=== PATIENT | female | born 1940 | race Caucasian/White ===

== ENCOUNTER 2021-04-17 14:24 | Inpatient (IN) | payer MEDICARE, OTHER ==
[2021-04-17] MEDS ORDERED: Sodium Chloride 0.9% 2.5 ML Syringe FLUSH PRN (16:11)
[2021-04-17] MEDS ORDERED: Sodium Chloride 0.9% 10 ML Syringe FLUSH PRN (16:11)
--- NOTE | 2021-04-17 16:12 | EDM.PDOC ---
<Santiago España - Last Filed: 04/17/21 18:17> ED HPI GENERAL MEDICAL PROBLEM - General Chief Complaint: Respiratory Problem Stated Complaint: COUGHING WEAKNESS Time Seen by Provider: 04/17/21 16:04 Source of Information: Reports: Patient - History of Present Illness INITIAL COMMENTS - FREE TEXT/NARRATIVE: 72-year-old female presents complaining of cough shortness of breath and weakness about a week in duration. It got worse over the last several days. Family member granddaughter sleeps with patient was coughing. Patient is vaccinated against Covid. No overt fevers. Patient has had several episodes of diarrhea. Patient states she only has chest pain when she coughs. No lower extremity swelling. No history of blood clots. No recent travel or injury or cancer surgery. Moderate symptoms and patient sent over for the symptoms with hypoxia 92% by the outpatient clinic. No history of asthma or COPD. Patient last smoked 20 years ago. She used to smoke a pack of cigarettes every 2 to 3 days. Patient does not wheeze with colds - Related Data Allergies Allergy/AdvReac Type Severity Reaction Status Date / Time No Known Allergies Allergy Verified 04/17/21 15:28 Home Meds: Home Meds ClonazePAM [KlonoPIN] 0.5 - 1 tab PO TID PRN 12/09/13 [History] Enalapril [Vasotec] 10 mg PO DAILY 12/09/13 [History] Levothyroxine Sodium [Levoxyl] 100 mcg PO DAILY 12/09/13 [History] buPROPion [Wellbutrin SR] 150 mg PO DAILY 12/09/13 [History] hydroCHLOROthiazide [Microzide] 12.5 mg PO DAILY 12/09/13 [History] Calcium Carb/Vitamin D3/Vit K1 [Viactiv Soft Chew] 1 tab PO DAILY 08/30/15 [History] Calcium Carbonate/Vitamin D3 [Caltrate 600 Plus D3 Tablet] 1 tab PO DAILY 08/30/15 [History] Cholecalciferol (Vitamin D3) [Vitamin D3] 1 tab PO DAILY 08/30/15 [History] Famotidine [Pepcid AC] 1 tab PO DAILY 08/30/15 [History] Mirtazapine 15 mg PO BEDTIME 08/30/15 [History] Multivitamin [Multivitamins] 1 tab PO DAILY 08/30/15 [History] Past Medical History Cardiovascular History: Reports: High Cholesterol, Hypertension Respiratory History: Reports: Other (See Below) Other Respiratory History: states has had sleep apnea in the past but no longer has Other Gastrointestinal History: hx gastric ulcer Genitourinary History: Reports: Renal Calculus Musculoskeletal History: Reports: Arthritis, Fracture, Fibromyalgia Neurological History: Reports: None Psychiatric History: Reports: Anxiety, Depression, Panic Attack Endocrine/Metabolic History: Reports: Hypothyroidism Hematologic History: Reports: None Immunologic History: Reports: None Oncologic (Cancer) History: Reports: None Other Dermatologic History: currently has rash - Past Surgical History Head Surgeries/Procedures: Reports: None HEENT Surgical History: Reports: Cataract Surgery GI Surgical History: Reports: Appendectomy, Bariatric Procedure, Cholecystectomy Female Surgical History: Reports: Breast Reduction, Hysterectomy Other Musculoskeletal Surgeries/Procedures:: hx knee surgery for fx knee (rt.knee) Social & Family History - Tobacco Use Second Hand Smoke Exposure: Yes - Caffeine Use Caffeine Use: Reports: None - Recreational Drug Use Recreational Drug Use: No ED ROS GENERAL - Review of Systems Review Of Systems: See Below ED EXAM, GENERAL - Physical Exam Exam: See Below Free Text/Narrative:: CONSTITUTIONAL: well appearing in no acute distress SKIN: Warm, dry, and intact without rash HENT: Normocephalic, atraumatic, PULMONARY: Tachypnea, rales, mild retractions CARDIOVASCULAR: regular rate, No murmur, rubs, or gallops. No elevated JVD GASTROINTESTINAL: soft, nondistended, nontender NEUROLOGIC: normal speech, II-XII intact. light touch/5/5 power equal and symmetric in upper and lower extremities without deficit MUSCULOSKELETAL: no gross deformities, atraumatic. No lower extremity edema PSYCHIATRIC: normal mood and affect #1 Interpretation Time: 16:25 EKG Interpretation Comments: EKG: NSR, nonspecific ST/T changes, Rate -72 Course - Vital Signs Text/Narrative:: Differential diagnosis: Covid, pneumonia, CHF, reactive airway disease, PE, other Patient presents as outlined above. Patient with tachypnea and hypoxia. Patient with wheeze and prior smoking history so will be treated for underlying reactive airway disease with breathing treatments and steroids. CT scan will be done to exclude PE and to better evaluate if there could be any evidence of con commitment underlying CHF or pneumonia. BEBO [place] 7pm Patient's blood pressure taken multiple times. There is only one episode of blood pressure in the 90s. Repeat bp: 107 systolic, 103 systolic Departure - Departure Disposition: Refer to Observation Clinical Impression: Acute bronchiolitis - Discharge Information Sepsis Event Note (ED) - Evaluation Sepsis Screening Result: No Definite Risk <Zia Augustin - Last Filed: 04/17/21 23:47> ED HPI GENERAL MEDICAL PROBLEM - History of Present Illness INITIAL COMMENTS - FREE TEXT/NARRATIVE: Patient was signed out to me by Dr. España pending CT and final disposition at 7pm. I promptly performed a detailed physical examination and my examination was done after ED treatments were initiated by the signout provider. Patient has been under the care of previous provider up until this point. On my reevaluation the patient was sitting comfortably in the stretcher, was tachypneic but able to speak in full sentences and was saturating 93% on 4 L nasal cannula. Patient had already received her CT and was awaiting final read. I did trial the patient off of oxygen and her oxygen saturation did go down to 86%. We started the patient back on 4 L nasal cannula. Cardiac monitoring at this time did reveal sinus rhythm and pulse oximetry with good waveform on 4 L was 93 to 94%. At this time the patient's COVID-19 is negative given that it is the beginning of influenza season and given her exposure to her granddaughter who had a viral illness which sounds respiratory will obtain flu and RSV swabs. The radiological images were viewed by myself along with reading the report from the radiologist. CT angiogram of the chest does not reveal any evidence of pulmonary embolism. There is scattered bilateral areas of nonspecific bronchiolitis suggesting an infectious or inflammatory process. This would not be a typical pattern for COVID-19 viral pneumonitis. Laboratory: Influenza negative. RSV positive. At this time given the patient is requiring supplemental oxygenation at 4 L nasal cannula I did discuss admission with the patient and discussed the results with her. She was amenable to this plan. I contacted Dr. Potts who accepted the patient for observation admission. DISPOSITION: Patient was admitted for observation in stable condition CONDITION: Fair PROCEDURES: Cardiac monitoring intubation, pulse oximetry interpretation FINAL IMPRESSION(S)/DIAGNOSES: 1. Acute hypoxic respiratory failure secondary to RSV bronchiolitis Critical Care Procedure Note Authorized and performed by: Zia Augustin M.D. Critical Care Time: 34 minutes Due to a high probability of clinically significant, life threatening deterioration, the patient required my highest level of preparedness to intervene emergently and I personally spent this critical care time directly and personally managing the patient. This critical care time included obtaining a history, examining the patient, pulse oximetry; ordering and review of studies; arranging urgent treatment with development of a management plan; evaluation of a patients response to treatment; frequent assessment; and discussions with other providers. This critical care time was performed to assess and manage the high probability of imminent, life threatening deterioration that could result in multiorgan failure. It was exclusive of separate billable procedures and treating other patients. Please see MDM section and rest of the note for further information on patient assessment and treatment. Please see MDM section and rest of the note for further information on patient assessment and treatment. Zia Augustin M.D. Course - Vital Signs Last Recorded V/S: Last Vital Signs Temp 35.8 C L 04/17/21 23:25 Pulse 66 04/17/21 23:25 Resp 26 H 04/17/21 20:17 BP 133/58 L 04/17/21 23:25 Pulse Ox 94 L 04/17/21 23:25 - Orders/Labs/Meds Orders: Active Orders 24 hr Category Date Time Status Cardiac Monitoring [RC] . DIRECTED Care 04/17/21 16:11 Active RT Aerosol Therapy [RC] ASDIRECTED Care 04/17/21 18:15 Active Sodium Chloride 0.9% [Saline Flush] Med 04/17/21 16:11 Active 10 ml FLUSH ASDIRECTED PRN Sodium Chloride 0.9% [Saline Flush] Med 04/17/21 16:11 Active 2.5 ml FLUSH ASDIRECTED PRN Isolation [COMM] Routine Oth 04/17/21 20:54 Active Isolation [COMM] Routine Oth 04/17/21 21:00 Active Isolation [COMM] Routine Oth 04/17/21 21:00 Active Saline Lock Insert [OM.PC] Stat Oth 04/17/21 16:11 Ordered Medication Orders Sodium Chloride (Sodium Chloride 0.9% 10 Ml Syringe) 10 ml FLUSH ASDIRECTED PRN PRN Reason: Keep Vein Open Last Admin: 04/17/21 18:21 Dose: 10 ml Documented by: CRISTOBAL Sodium Chloride (Sodium Chloride 0.9% 2.5 Ml Syringe) 2.5 ml FLUSH ASDIRECTED PRN PRN Reason: Keep Vein Open Last Admin: 04/17/21 18:21 Dose: 2.5 ml Documented by: CRISTOBAL Labs: Laboratory Tests 04/17/21 04/17/21 04/17/21 Range/Units 16:26 16:26 16:26 WBC 9.22 (4.0-11.0) K/uL RBC 4.07 L (4.30-5.90) M/uL Hgb 11.9 L (12.0-16.0) g/dL Hct 36.0 (36.0-46.0) % MCV 88.5 (80.0-98.0) fL MCH 29.2 (27.0-32.0) pg MCHC 33.1 (31.0-37.0) g/dL RDW Std Deviation 46.8 (28.0-62.0) fl RDW Coeff of Go 14 (11.0-15.0) % Plt Count 212 (150-400) K/uL MPV 9.00 (7.40-12.00) fL Neut % (Auto) 77.9 (48.0-80.0) % Lymph % (Auto) 9.7 L (16.0-40.0) % [place] % (Auto) 12.3 (0.0-15.0) % Eos % (Auto) 0.0 (0.0-7.0) % Baso % (Auto) 0.1 (0.0-1.5) % Neut # (Auto) 7.2 H (1.4-5.7) K/uL Lymph # (Auto) 0.9 (0.6-2.4) K/uL [place] # (Auto) 1.1 H (0.0-0.8) K/uL Eos # (Auto) 0.0 (0.0-0.7) K/uL Baso # (Auto) 0.0 (0.0-0.1) K/uL Nucleated RBC % 0.0 /100WBC Nucleated RBCs # 0 K/uL INR 1.01 Sodium (136-145) mmol/L Potassium (3.5-5.1) mmol/L Chloride (98-107) mmol/L Carbon Dioxide (21.0-32.0) mmol/L BUN (7.0-18.0) mg/dL Creatinine (0.6-1.0) mg/dL Est Cr Clr Drug Dosing mL/min Estimated GFR (MDRD) ml/min Glucose (74-106) mg/dL Calcium (8.5-10.1) mg/dL Total Bilirubin (0.2-1.0) mg/dL AST (15-37) IU/L ALT (14-63) IU/L Alkaline Phosphatase (46-116) U/L Troponin I (0.000-0.056) ng/mL B-Natriuretic Peptide (<100) PG/ML Total Protein (6.4-8.2) g/dL Albumin (3.4-5.0) g/dL Globulin (2.6-4.0) g/dL Albumin/Globulin Ratio (0.9-1.6) SARS-CoV-2 RNA ([place]) NEGATIVE (NEGATIVE) 04/17/21 04/17/21 Range/Units 16:26 16:26 WBC (4.0-11.0) K/uL RBC (4.30-5.90) M/uL Hgb (12.0-16.0) g/dL Hct (36.0-46.0) % MCV (80.0-98.0) fL MCH (27.0-32.0) pg MCHC (31.0-37.0) g/dL RDW Std Deviation (28.0-62.0) fl RDW Coeff of Go (11.0-15.0) % Plt Count (150-400) K/uL MPV (7.40-12.00) fL Neut % (Auto) (48.0-80.0) % Lymph % (Auto) (16.0-40.0) % [place] % (Auto) (0.0-15.0) % Eos % (Auto) (0.0-7.0) % Baso % (Auto) (0.0-1.5) % Neut # (Auto) (1.4-5.7) K/uL Lymph # (Auto) (0.6-2.4) K/uL [place] # (Auto) (0.0-0.8) K/uL Eos # (Auto) (0.0-0.7) K/uL Baso # (Auto) (0.0-0.1) K/uL Nucleated RBC % /100WBC Nucleated RBCs # K/uL INR Sodium 132 L (136-145) mmol/L Potassium 3.7 (3.5-5.1) mmol/L Chloride 96 L (98-107) mmol/L Carbon Dioxide 26.2 (21.0-32.0) mmol/L BUN 21 H (7.0-18.0) mg/dL Creatinine 1.4 H (0.6-1.0) mg/dL Est Cr Clr Drug Dosing 32.20 mL/min Estimated GFR (MDRD) 36.4 ml/min Glucose 121 H (74-106) mg/dL Calcium 8.6 (8.5-10.1) mg/dL Total Bilirubin 0.6 (0.2-1.0) mg/dL AST 28 (15-37) IU/L ALT 13 L (14-63) IU/L Alkaline Phosphatase 116 (46-116) U/L Troponin I < 0.050 (0.000-0.056) ng/mL B-Natriuretic Peptide 142 H (<100) PG/ML Total Protein 6.9 (6.4-8.2) g/dL Albumin 2.8 L (3.4-5.0) g/dL Globulin 4.1 H (2.6-4.0) g/dL Albumin/Globulin Ratio 0.7 L (0.9-1.6) SARS-CoV-2 RNA ([place]) (NEGATIVE) Meds: Medications Generic Name Dose Route Start Last Admin Trade Name Seven PRN Reason Stop Dose Admin Sodium Chloride 10 ml 04/17/21 16:11 04/17/21 18:21 Sodium Chloride 0.9% 10 Ml Syringe FLUSH 10 ml ASDIRECTED PRN Administration Keep Vein Open Sodium Chloride 2.5 ml 04/17/21 16:11 04/17/21 18:21 Sodium Chloride 0.9% 2.5 Ml Syringe FLUSH 2.5 ml ASDIRECTED PRN Administration Keep Vein Open Discontinued Medications Generic Name Dose Route Start Last Admin Trade Name Seven PRN Reason Stop Dose Admin Albuterol/Ipratropium 3 ml 04/17/21 18:14 04/17/21 18:22 Albuterol/Ipratropium 3.0-0.5 Mg/3 Ml Neb Soln NEB 04/17/21 18:15 3 ml ONETIME ONE Administration Ceftriaxone Sodium/Dextrose 1 50 mls @ 100 mls/hr 04/17/21 18:40 04/17/21 18:51 gm/ Premix IV 04/17/21 19:09 100 mls/hr ONETIME ONE Administration Iopamidol 50 ml 04/17/21 19:46 04/17/21 19:47 Iopamidol 755 Mg/Ml 500 Ml Multipack Bottle IVPUSH 04/17/21 19:47 50 ml ONETIME STA Administration Methylprednisolone Sodium Succinate 80 mg 04/17/21 18:15 04/17/21 18:51 Methylprednisolone Sodium Succinate 125 Mg/2 Ml Sdv IVPUSH 04/17/21 18:16 80 mg ONETIME ONE Administration Departure - Departure Time of Disposition: 21:46 Condition: Fair Sepsis Event Note (ED) - Focused Exam Vital Signs: Vital Signs Temp Pulse Resp BP Pulse Ox 04/17/21 21:45 93 L 04/17/21 21:11 80 126/44 L 93 L 04/17/21 21:07 86 L 04/17/21 20:17 73 26 H 121/52 L 100 04/17/21 19:02 95 04/17/21 18:56 69 18 124/56 L 91 L 04/17/21 15:24 37.0 C 68 22 H 90/57 L 94 L - My Orders Last 24 Hours: My Active Orders 04/17/21 20:54 Isolation [COMM] Routine 04/17/21 21:00 Isolation [COMM] Routine Isolation [COMM] Routine - Assessment/Plan Last 24 Hours: My Active Orders 04/17/21 20:54 Isolation [COMM] Routine 04/17/21 21:00 Isolation [COMM] Routine Isolation [COMM] Routine
[2021-04-17 17:20] LABS: BLOOD UREA NITROGEN,BUN 21 mg/dL (7.0-18.0); CARBON DIOXIDE,CO2 26.2 mmol/L (21.0-32.0); CHLORIDE,CL 96 mmol/L (98-107); GLUCOSE RANDOM 121 mg/dL (74-106); POTASSIUM,K 3.7 mmol/L (3.5-5.1); SODIUM,NA 132 mmol/L (136-145)
--- NOTE | 2021-04-17 17:58 | CR ---
Indication: Chest pain Technique: AP portable view of the chest. Comparison: None Findings: The heart is increased in size. The lungs are clear. No infiltrate, pleural effusion, or pneumothorax is identified. Impression: Mild cardiomegaly. Dictated by Khushi Mcqueen MD @ 04/17/2021 5:56:57 PM (Electronically Signed)
[2021-04-17] MEDS ORDERED: Albuterol/Ipratropium 3.0-0.5 MG/3 ML Neb Soln NEB ONE (18:14)
[2021-04-17] MEDS ORDERED: methylPREDNISolone Sodium Succinate 125 MG/2 ML SDV IVPUSH ONE (18:15)
[2021-04-17] MEDS ORDERED: cefTRIAXone 1 GM in Premix Bag 1 BAG IV ONE (18:40)
[2021-04-17] MEDS ORDERED: Iopamidol 755 MG/ML 500 ML Multipack Bottle IVPUSH STA (19:46)
--- NOTE | 2021-04-17 20:25 | CT ---
INDICATION: Shortness of breath. TECHNIQUE: CT chest PE was acquired with 50 cc Isovue 370 IV contrast. COMPARISON: None. FINDINGS: Heart and vasculature: Contrast opacification of the pulmonary arterial tree is adequate. No sign of pulmonary embolism. Heart size is normal. Thoracic aorta and pulmonary artery are normal in caliber. Lungs and pleural: There are scattered bilateral areas of reticulonodular infiltration. No lobar consolidations or suspicious nodules. No pleural effusions, pleural thickening, or pneumothorax. Lymph nodes/mediastinum: Few lymph nodes in the mediastinum and bilateral hilar regions are in the upper limits of normal in size. Chest wall: No masses. Upper abdomen: No acute or significant findings. Bones: Unremarkable for age. IMPRESSION: 1. No pulmonary embolism. 2. Scattered bilateral areas of nonspecific bronchiolitis suggesting an infectious or inflammatory process. This would not be a typical pattern for COVID-19 viral pneumonitis. Please note that all CT scans at this facility use dose modulation, iterative reconstruction, and/or weight-based dosing when appropriate to reduce radiation dose to as low as reasonably achievable. Dictated by Kyle Bejarano MD @ 04/17/2021 8:25:04 PM (Electronically Signed)
--- NOTE | 2021-04-17 23:44 | PCM.HP.2 ---
H&P History of Present Illness - General Date of Service: 04/18/21 Admit Problem/Dx: Admission Diagnosis/Problem Admission Diagnosis/Problem Hypoxia - History of Present Illness Initial Comments - Free Text/Narative: 80 yo female with pmh of hypertension who presents with several day history of cough, shortness of breath and fatigue. Patient's granddaughter is also sick and has sleeping in same room. Patient denies any fevers or chest pain. CT scans of chest is negative for PE but shows bilateral infiltrates. - Related Data Allergies/Adverse Reactions: Allergies Allergy/AdvReac Type Severity Reaction Status Date / Time No Known Allergies Allergy Verified 04/17/21 15:28 Home Medications: Home Meds ClonazePAM [KlonoPIN] 0.5 - 1 tab PO TID PRN 12/09/13 [History] Enalapril [Vasotec] 10 mg PO DAILY 12/09/13 [History] Levothyroxine Sodium [Levoxyl] 100 mcg PO DAILY 12/09/13 [History] buPROPion [Wellbutrin SR] 150 mg PO DAILY 12/09/13 [History] hydroCHLOROthiazide [Microzide] 12.5 mg PO DAILY 12/09/13 [History] Calcium Carb/Vitamin D3/Vit K1 [Viactiv Soft Chew] 1 tab PO DAILY 08/30/15 [History] Calcium Carbonate/Vitamin D3 [Caltrate 600 Plus D3 Tablet] 1 tab PO DAILY 08/30/15 [History] Cholecalciferol (Vitamin D3) [Vitamin D3] 1 tab PO DAILY 08/30/15 [History] Famotidine [Pepcid AC] 1 tab PO DAILY 08/30/15 [History] Mirtazapine 15 mg PO BEDTIME 08/30/15 [History] Multivitamin [Multivitamins] 1 tab PO DAILY 08/30/15 [History] Past Medical History Cardiovascular History: Reports: High Cholesterol, Hypertension Respiratory History: Reports: Other (See Below) Other Respiratory History: states has had sleep apnea in the past but no longer has Other Gastrointestinal History: hx gastric ulcer Genitourinary History: Reports: Renal Calculus Musculoskeletal History: Reports: Arthritis, Fracture, Fibromyalgia Neurological History: Reports: None Psychiatric History: Reports: Anxiety, Depression, Panic Attack Endocrine/Metabolic History: Reports: Hypothyroidism Hematologic History: Reports: None Immunologic History: Reports: None Oncologic (Cancer) History: Reports: None Other Dermatologic History: currently has rash - Past Surgical History Head Surgeries/Procedures: Reports: None HEENT Surgical History: Reports: Cataract Surgery GI Surgical History: Reports: Appendectomy, Bariatric Procedure, Cholecystectomy Female Surgical History: Reports: Breast Reduction, Hysterectomy Other Musculoskeletal Surgeries/Procedures:: hx knee surgery for fx knee (rt.knee) Social & Family History - Tobacco Use Second Hand Smoke Exposure: Yes - Caffeine Use Caffeine Use: Reports: None - Recreational Drug Use Recreational Drug Use: No H&P Review of Systems - Review of Systems: Review Of Systems: Comprehensive ROS is negative, except as noted in HPI. Exam - Exam Exam: See Below - Vital Signs Vital Signs: Last Vital Signs Temp 35.8 C L 04/17/21 23:25 Pulse 66 04/17/21 23:25 Resp 26 H 04/17/21 20:17 BP 133/58 L 04/17/21 23:25 Pulse Ox 94 L 04/17/21 23:25 Weight: 74.344 kg - Exam General: Alert, Oriented HEENT: Mucosa Moist & [place] Neck: Supple Lungs: Normal Respiratory Effort, Rhonchi Cardiovascular: Regular Rate, Regular Rhythm GI/Abdominal Exam: Normal Bowel Sounds, Soft, Non-Tender Extremities: Non-Tender, No Pedal Edema Skin: Warm, Dry, Intact Neurological: Cranial Nerves Intact. No: Focal Deficit - Patient Data Lab Results Last 24 hrs: Laboratory Results - last 24 hr 04/17/21 04/17/21 04/17/21 Range/Units 16:26 16:26 16:26 WBC 9.22 (4.0-11.0) K/uL RBC 4.07 L (4.30-5.90) M/uL Hgb 11.9 L (12.0-16.0) g/dL Hct 36.0 (36.0-46.0) % MCV 88.5 (80.0-98.0) fL MCH 29.2 (27.0-32.0) pg MCHC 33.1 (31.0-37.0) g/dL RDW Std Deviation 46.8 (28.0-62.0) fl RDW Coeff of Go 14 (11.0-15.0) % Plt Count 212 (150-400) K/uL MPV 9.00 (7.40-12.00) fL Neut % (Auto) 77.9 (48.0-80.0) % Lymph % (Auto) 9.7 L (16.0-40.0) % [place] % (Auto) 12.3 (0.0-15.0) % Eos % (Auto) 0.0 (0.0-7.0) % Baso % (Auto) 0.1 (0.0-1.5) % Neut # (Auto) 7.2 H (1.4-5.7) K/uL Lymph # (Auto) 0.9 (0.6-2.4) K/uL [place] # (Auto) 1.1 H (0.0-0.8) K/uL Eos # (Auto) 0.0 (0.0-0.7) K/uL Baso # (Auto) 0.0 (0.0-0.1) K/uL Nucleated RBC % 0.0 /100WBC Nucleated RBCs # 0 K/uL INR 1.01 Sodium (136-145) mmol/L Potassium (3.5-5.1) mmol/L Chloride (98-107) mmol/L Carbon Dioxide (21.0-32.0) mmol/L BUN (7.0-18.0) mg/dL Creatinine (0.6-1.0) mg/dL Est Cr Clr Drug Dosing mL/min Estimated GFR (MDRD) ml/min Glucose (74-106) mg/dL Calcium (8.5-10.1) mg/dL Total Bilirubin (0.2-1.0) mg/dL AST (15-37) IU/L ALT (14-63) IU/L Alkaline Phosphatase (46-116) U/L Troponin I (0.000-0.056) ng/mL B-Natriuretic Peptide (<100) PG/ML Total Protein (6.4-8.2) g/dL Albumin (3.4-5.0) g/dL Globulin (2.6-4.0) g/dL Albumin/Globulin Ratio (0.9-1.6) SARS-CoV-2 RNA ([place]) NEGATIVE (NEGATIVE) 04/17/21 04/17/21 Range/Units 16:26 16:26 WBC (4.0-11.0) K/uL RBC (4.30-5.90) M/uL Hgb (12.0-16.0) g/dL Hct (36.0-46.0) % MCV (80.0-98.0) fL MCH (27.0-32.0) pg MCHC (31.0-37.0) g/dL RDW Std Deviation (28.0-62.0) fl RDW Coeff of Go (11.0-15.0) % Plt Count (150-400) K/uL MPV (7.40-12.00) fL Neut % (Auto) (48.0-80.0) % Lymph % (Auto) (16.0-40.0) % [place] % (Auto) (0.0-15.0) % Eos % (Auto) (0.0-7.0) % Baso % (Auto) (0.0-1.5) % Neut # (Auto) (1.4-5.7) K/uL Lymph # (Auto) (0.6-2.4) K/uL [place] # (Auto) (0.0-0.8) K/uL Eos # (Auto) (0.0-0.7) K/uL Baso # (Auto) (0.0-0.1) K/uL Nucleated RBC % /100WBC Nucleated RBCs # K/uL INR Sodium 132 L (136-145) mmol/L Potassium 3.7 (3.5-5.1) mmol/L Chloride 96 L (98-107) mmol/L Carbon Dioxide 26.2 (21.0-32.0) mmol/L BUN 21 H (7.0-18.0) mg/dL Creatinine 1.4 H (0.6-1.0) mg/dL Est Cr Clr Drug Dosing 32.20 mL/min Estimated GFR (MDRD) 36.4 ml/min Glucose 121 H (74-106) mg/dL Calcium 8.6 (8.5-10.1) mg/dL Total Bilirubin 0.6 (0.2-1.0) mg/dL AST 28 (15-37) IU/L ALT 13 L (14-63) IU/L Alkaline Phosphatase 116 (46-116) U/L Troponin I < 0.050 (0.000-0.056) ng/mL B-Natriuretic Peptide 142 H (<100) PG/ML Total Protein 6.9 (6.4-8.2) g/dL Albumin 2.8 L (3.4-5.0) g/dL Globulin 4.1 H (2.6-4.0) g/dL Albumin/Globulin Ratio 0.7 L (0.9-1.6) SARS-CoV-2 RNA ([place]) (NEGATIVE) Result Diagrams: 04/17/21 16:26 04/17/21 16:26 Kam Results Last 24 hrs: Microbiology 04/17/21 16:26 Respiratory Syncytial Virus Ag Scrn - Final Nasopharyngeal Swab Positive Rsv Antigen Influenza Type A Antigen Screen - Final NEGATIVE INFLUENZA A VIRUS AG REFERENCE RANGE: NEGATIVE Influenza Type B Antigen Screen - Final NEGATIVE INFLUENZA B VIRUS AG REFERENCE RANGE: NEGATIVE Sepsis Event Note - Evaluation Sepsis Screening Result: No Definite Risk - Focused Exam Vital Signs: Vital Signs Temp Pulse Resp BP Pulse Ox 04/17/21 23:25 35.8 C L 66 133/58 L 94 L 04/17/21 22:11 71 103/47 L 96 04/17/21 21:45 93 L 04/17/21 21:11 80 126/44 L 93 L 04/17/21 21:07 86 L 04/17/21 20:17 73 26 H 121/52 L 100 04/17/21 19:02 95 04/17/21 18:56 69 18 124/56 L 91 L 04/17/21 15:24 37.0 C 68 22 H 90/57 L 94 L - Problem List (1) RSV (respiratory syncytial virus infection) SNOMED Code(s): 08090870 ICD Code: B97.4 - RESPIRATORY SYNCYTIAL VIRUS CAUSING DISEASES CLASSD [id number] Status: Acute Current Visit: Yes (2) Acute bronchiolitis SNOMED Code(s): 3603215 ICD Code: J21.9 - ACUTE BRONCHIOLITIS, UNSPECIFIED Status: Acute Current Visit: Yes Problem List Initiated/Reviewed/Updated: Yes Orders Last 24hrs: Active Orders 24 hr Category Date Time Status Admission Status [Patient Status] [ADT] Stat ADT 04/17/21 21:46 Active Cardiac Monitoring [RC] . DIRECTED Care 04/17/21 16:11 Active RT Aerosol Therapy [RC] ASDIRECTED Care 04/17/21 18:15 Active Sodium Chloride 0.9% [Saline Flush] Med 04/17/21 16:11 Active 10 ml FLUSH ASDIRECTED PRN Sodium Chloride 0.9% [Saline Flush] Med 04/17/21 16:11 Active 2.5 ml FLUSH ASDIRECTED PRN Isolation [COMM] Routine Oth 04/17/21 20:54 Active Isolation [COMM] Routine Oth 04/17/21 21:00 Active Isolation [COMM] Routine Oth 04/17/21 21:00 Active Saline Lock Insert [OM.PC] Stat Oth 04/17/21 16:11 Ordered Medication Orders Sodium Chloride (Sodium Chloride 0.9% 10 Ml Syringe) 10 ml FLUSH ASDIRECTED PRN PRN Reason: Keep Vein Open Last Admin: 04/17/21 18:21 Dose: 10 ml Documented by: CRISTOBAL Sodium Chloride (Sodium Chloride 0.9% 2.5 Ml Syringe) 2.5 ml FLUSH ASDIRECTED PRN PRN Reason: Keep Vein Open Last Admin: 04/17/21 18:21 Dose: 2.5 ml Documented by: CRISTOBAL Assessment/Plan Comment:: 80 yo female admitted for atypical pneumonia. Patient has tested positive for RSV. Patient has received Solumedrol and IV antibiotics.
[2021-04-18] MEDS ORDERED: ClonazePAM 0.5 MG Tab PO PRN (00:03)
[2021-04-18] MEDS ORDERED: Mirtazapine 15 MG Tab PO SCH (00:15)
[2021-04-18] MEDS: Azithromycin 500 MG in Sodium Chloride 0.9% 250 ML IV SCH (00:54)
[2021-04-18] MEDS: Albuterol/Ipratropium 3.0-0.5 MG/3 ML Neb Soln NEB SCH ×3 (06:18→17:14)
[2021-04-18] MEDS: Levothyroxine 100 MCG Tab PO SCH (06:40)
[2021-04-18 07:13] LABS: CARBON DIOXIDE,CO2 28.1 mmol/L (21.0-32.0); POTASSIUM,K 4.2 mmol/L (3.5-5.1)
[2021-04-18] MEDS ORDERED: BUPROPION 100 MG PO SCH (09:00)
[2021-04-18] MEDS: Hydrochlorothiazide 12.5 MG Cap PO SCH (09:05)
[2021-04-18] MEDS: Famotidine 20 MG Tab PO SCH (09:06)
--- NOTE | 2021-04-18 13:21 | PCM.PN ---
- General Info Date of Service: 04/18/21 - Review of Systems Systems Review Comment:: feeling better, but still short of breath with generalized weakness - Patient Data Vitals - Most Recent: Last Vital Signs Temp 36.2 C 04/18/21 09:00 Pulse 68 04/18/21 09:00 Resp 18 04/18/21 09:00 BP 145/65 H 04/18/21 09:06 Pulse Ox 96 04/18/21 09:00 Weight - Most Recent: 74.344 kg I&O - Last 24 Hours: Intake & Output 04/17/21 04/18/21 04/18/21 22:59 06:59 14:59 Intake Total 200 Output Total 350 Balance -150 Lab Results Last 24 Hours: Laboratory Results - last 24 hr 04/17/21 04/17/21 04/17/21 Range/Units 16:26 16:26 16:26 WBC 9.22 (4.0-11.0) K/uL RBC 4.07 L (4.30-5.90) M/uL Hgb 11.9 L (12.0-16.0) g/dL Hct 36.0 (36.0-46.0) % MCV 88.5 (80.0-98.0) fL MCH 29.2 (27.0-32.0) pg MCHC 33.1 (31.0-37.0) g/dL RDW Std Deviation 46.8 (28.0-62.0) fl RDW Coeff of Go 14 (11.0-15.0) % Plt Count 212 (150-400) K/uL MPV 9.00 (7.40-12.00) fL Neut % (Auto) 77.9 (48.0-80.0) % Lymph % (Auto) 9.7 L (16.0-40.0) % [place] % (Auto) 12.3 (0.0-15.0) % Eos % (Auto) 0.0 (0.0-7.0) % Baso % (Auto) 0.1 (0.0-1.5) % Neut # (Auto) 7.2 H (1.4-5.7) K/uL Lymph # (Auto) 0.9 (0.6-2.4) K/uL [place] # (Auto) 1.1 H (0.0-0.8) K/uL Eos # (Auto) 0.0 (0.0-0.7) K/uL Baso # (Auto) 0.0 (0.0-0.1) K/uL Nucleated RBC % 0.0 /100WBC Nucleated RBCs # 0 K/uL INR 1.01 Sodium (136-145) mmol/L Potassium (3.5-5.1) mmol/L Chloride (98-107) mmol/L Carbon Dioxide (21.0-32.0) mmol/L BUN (7.0-18.0) mg/dL Creatinine (0.6-1.0) mg/dL Est Cr Clr Drug Dosing mL/min Estimated GFR (MDRD) ml/min Glucose (74-106) mg/dL Calcium (8.5-10.1) mg/dL Total Bilirubin (0.2-1.0) mg/dL AST (15-37) IU/L ALT (14-63) IU/L Alkaline Phosphatase (46-116) U/L Troponin I (0.000-0.056) ng/mL B-Natriuretic Peptide (<100) PG/ML Total Protein (6.4-8.2) g/dL Albumin (3.4-5.0) g/dL Globulin (2.6-4.0) g/dL Albumin/Globulin Ratio (0.9-1.6) SARS-CoV-2 RNA ([place]) NEGATIVE (NEGATIVE) 04/17/21 04/17/21 04/18/21 Range/Units 16:26 16:26 06:05 WBC 7.49 (4.0-11.0) K/uL RBC 3.64 L (4.30-5.90) M/uL Hgb 10.7 L (12.0-16.0) g/dL Hct 32.2 L (36.0-46.0) % MCV 88.5 (80.0-98.0) fL MCH 29.4 (27.0-32.0) pg MCHC 33.2 (31.0-37.0) g/dL RDW Std Deviation 46.6 (28.0-62.0) fl RDW Coeff of Go 14 (11.0-15.0) % Plt Count 172 (150-400) K/uL MPV 8.90 (7.40-12.00) fL Neut % (Auto) 84.5 H (48.0-80.0) % Lymph % (Auto) 6.4 L (16.0-40.0) % [place] % (Auto) 9.1 (0.0-15.0) % Eos % (Auto) 0.0 (0.0-7.0) % Baso % (Auto) 0.0 (0.0-1.5) % Neut # (Auto) 6.3 H (1.4-5.7) K/uL Lymph # (Auto) 0.5 L (0.6-2.4) K/uL [place] # (Auto) 0.7 (0.0-0.8) K/uL Eos # (Auto) 0.0 (0.0-0.7) K/uL Baso # (Auto) 0.0 (0.0-0.1) K/uL Nucleated RBC % 0.0 /100WBC Nucleated RBCs # 0 K/uL INR Sodium 132 L (136-145) mmol/L Potassium 3.7 (3.5-5.1) mmol/L Chloride 96 L (98-107) mmol/L Carbon Dioxide 26.2 (21.0-32.0) mmol/L BUN 21 H (7.0-18.0) mg/dL Creatinine 1.4 H (0.6-1.0) mg/dL Est Cr Clr Drug Dosing 32.20 mL/min Estimated GFR (MDRD) 36.4 ml/min Glucose 121 H (74-106) mg/dL Calcium 8.6 (8.5-10.1) mg/dL Total Bilirubin 0.6 (0.2-1.0) mg/dL AST 28 (15-37) IU/L ALT 13 L (14-63) IU/L Alkaline Phosphatase 116 (46-116) U/L Troponin I < 0.050 (0.000-0.056) ng/mL B-Natriuretic Peptide 142 H (<100) PG/ML Total Protein 6.9 (6.4-8.2) g/dL Albumin 2.8 L (3.4-5.0) g/dL Globulin 4.1 H (2.6-4.0) g/dL Albumin/Globulin Ratio 0.7 L (0.9-1.6) SARS-CoV-2 RNA ([place]) (NEGATIVE) 04/18/21 Range/Units 06:05 WBC (4.0-11.0) K/uL RBC (4.30-5.90) M/uL Hgb (12.0-16.0) g/dL Hct (36.0-46.0) % MCV (80.0-98.0) fL MCH (27.0-32.0) pg MCHC (31.0-37.0) g/dL RDW Std Deviation (28.0-62.0) fl RDW Coeff of Go (11.0-15.0) % Plt Count (150-400) K/uL MPV (7.40-12.00) fL Neut % (Auto) (48.0-80.0) % Lymph % (Auto) (16.0-40.0) % [place] % (Auto) (0.0-15.0) % Eos % (Auto) (0.0-7.0) % Baso % (Auto) (0.0-1.5) % Neut # (Auto) (1.4-5.7) K/uL Lymph # (Auto) (0.6-2.4) K/uL [place] # (Auto) (0.0-0.8) K/uL Eos # (Auto) (0.0-0.7) K/uL Baso # (Auto) (0.0-0.1) K/uL Nucleated RBC % /100WBC Nucleated RBCs # K/uL INR Sodium 134 L (136-145) mmol/L Potassium 4.2 (3.5-5.1) mmol/L Chloride 99 (98-107) mmol/L Carbon Dioxide 28.1 (21.0-32.0) mmol/L BUN 26 H (7.0-18.0) mg/dL Creatinine 1.4 H (0.6-1.0) mg/dL Est Cr Clr Drug Dosing 32.12 mL/min Estimated GFR (MDRD) 36.4 ml/min Glucose 154 H (74-106) mg/dL Calcium 8.7 (8.5-10.1) mg/dL Total Bilirubin (0.2-1.0) mg/dL AST (15-37) IU/L ALT (14-63) IU/L Alkaline Phosphatase (46-116) U/L Troponin I (0.000-0.056) ng/mL B-Natriuretic Peptide (<100) PG/ML Total Protein (6.4-8.2) g/dL Albumin (3.4-5.0) g/dL Globulin (2.6-4.0) g/dL Albumin/Globulin Ratio (0.9-1.6) SARS-CoV-2 RNA ([place]) (NEGATIVE) Kam Results Last 24 Hours: Microbiology 04/17/21 16:26 Respiratory Syncytial Virus Ag Scrn - Final Nasopharyngeal Swab Positive Rsv Antigen Influenza Type A Antigen Screen - Final NEGATIVE INFLUENZA A VIRUS AG REFERENCE RANGE: NEGATIVE Influenza Type B Antigen Screen - Final NEGATIVE INFLUENZA B VIRUS AG REFERENCE RANGE: NEGATIVE Med Orders - Current: Current Medications Albuterol/Ipratropium (Albuterol/Ipratropium 3.0-0.5 Mg/3 Ml Neb Soln) 3 ml NEB Q6HRRT [facility] Last Admin: 04/18/21 11:12 Dose: 3 ml Documented by: Clonazepam (Clonazepam 0.5 Mg Tab) 0.5 mg PO TID PRN PRN Reason: Anxiety Enalapril Maleate (Enalapril 10 Mg Tab) 10 mg PO DAILY [facility] Last Admin: 04/18/21 09:06 Dose: 10 mg Documented by: Famotidine (Famotidine 20 Mg Tab) 20 mg PO DAILY [facility] Last Admin: 04/18/21 09:06 Dose: 20 mg Documented by: Hydrochlorothiazide (Hydrochlorothiazide 12.5 Mg Cap) 12.5 mg PO DAILY [facility] Last Admin: 04/18/21 09:05 Dose: 12.5 mg Documented by: Ceftriaxone Sodium/Dextrose 1 (gm/ Premix) 50 mls @ 100 mls/hr IV Q24H [facility] Azithromycin 500 mg/ Sodium (Chloride) 250 mls @ 250 mls/hr IV Q24H [facility] Last Admin: 04/18/21 00:54 Dose: 250 mls/hr Documented by: Levothyroxine Sodium (Levothyroxine 100 Mcg Tab) 100 mcg PO ACBRK [facility] Last Admin: 04/18/21 06:40 Dose: 100 mcg Documented by: Mirtazapine (Mirtazapine 15 Mg Tab) 60 mg PO BEDTIME [facility] Sodium Chloride (Sodium Chloride 0.9% 10 Ml Syringe) 10 ml FLUSH ASDIRECTED PRN PRN Reason: Keep Vein Open Last Admin: 04/17/21 18:21 Dose: 10 ml Documented by: Sodium Chloride (Sodium Chloride 0.9% 2.5 Ml Syringe) 2.5 ml FLUSH ASDIRECTED PRN PRN Reason: Keep Vein Open Last Admin: 04/17/21 18:21 Dose: 2.5 ml Documented by: Discontinued Medications Albuterol/Ipratropium (Albuterol/Ipratropium 3.0-0.5 Mg/3 Ml Neb Soln) 3 ml NEB ONETIME ONE Stop: 04/17/21 18:15 Last Admin: 04/17/21 18:22 Dose: 3 ml Documented by: Clonazepam (Clonazepam 0.5 Mg Tab) 0.25 - 0.5 mg PO TID PRN PRN Reason: Anxiety Last Admin: 04/18/21 00:59 Dose: 0.5 mg Documented by: Ceftriaxone Sodium/Dextrose 1 (gm/ Premix) 50 mls @ 100 mls/hr IV ONETIME ONE Stop: 04/17/21 19:09 Last Admin: 04/17/21 18:51 Dose: 100 mls/hr Documented by: Iopamidol (Iopamidol 755 Mg/Ml 500 Ml Multipack Bottle) 50 ml IVPUSH ONETIME STA Stop: 04/17/21 19:47 Last Admin: 04/17/21 19:47 Dose: 50 ml Documented by: Methylprednisolone Sodium Succinate (Methylprednisolone Sodium Succinate 125 Mg/2 Ml Sdv) 80 mg IVPUSH ONETIME ONE Stop: 04/17/21 18:16 Last Admin: 04/17/21 18:51 Dose: 80 mg Documented by: Mirtazapine (Mirtazapine 15 Mg Tab) 15 mg PO BEDTIME [facility] Last Admin: 04/18/21 00:59 Dose: 15 mg Documented by: - Patient Data Lab Results Last 24 hrs: Laboratory Results - last 24 hr 04/17/21 04/17/21 04/17/21 Range/Units 16:26 16:26 16:26 WBC 9.22 (4.0-11.0) K/uL RBC 4.07 L (4.30-5.90) M/uL Hgb 11.9 L (12.0-16.0) g/dL Hct 36.0 (36.0-46.0) % MCV 88.5 (80.0-98.0) fL MCH 29.2 (27.0-32.0) pg MCHC 33.1 (31.0-37.0) g/dL RDW Std Deviation 46.8 (28.0-62.0) fl RDW Coeff of Go 14 (11.0-15.0) % Plt Count 212 (150-400) K/uL MPV 9.00 (7.40-12.00) fL Neut % (Auto) 77.9 (48.0-80.0) % Lymph % (Auto) 9.7 L (16.0-40.0) % [place] % (Auto) 12.3 (0.0-15.0) % Eos % (Auto) 0.0 (0.0-7.0) % Baso % (Auto) 0.1 (0.0-1.5) % Neut # (Auto) 7.2 H (1.4-5.7) K/uL Lymph # (Auto) 0.9 (0.6-2.4) K/uL [place] # (Auto) 1.1 H (0.0-0.8) K/uL Eos # (Auto) 0.0 (0.0-0.7) K/uL Baso # (Auto) 0.0 (0.0-0.1) K/uL Nucleated RBC % 0.0 /100WBC Nucleated RBCs # 0 K/uL INR 1.01 Sodium (136-145) mmol/L Potassium (3.5-5.1) mmol/L Chloride (98-107) mmol/L Carbon Dioxide (21.0-32.0) mmol/L BUN (7.0-18.0) mg/dL Creatinine (0.6-1.0) mg/dL Est Cr Clr Drug Dosing mL/min Estimated GFR (MDRD) ml/min Glucose (74-106) mg/dL Calcium (8.5-10.1) mg/dL Total Bilirubin (0.2-1.0) mg/dL AST (15-37) IU/L ALT (14-63) IU/L Alkaline Phosphatase (46-116) U/L Troponin I (0.000-0.056) ng/mL B-Natriuretic Peptide (<100) PG/ML Total Protein (6.4-8.2) g/dL Albumin (3.4-5.0) g/dL Globulin (2.6-4.0) g/dL Albumin/Globulin Ratio (0.9-1.6) SARS-CoV-2 RNA ([place]) NEGATIVE (NEGATIVE) 04/17/21 04/17/21 04/18/21 Range/Units 16:26 16:26 06:05 WBC 7.49 (4.0-11.0) K/uL RBC 3.64 L (4.30-5.90) M/uL Hgb 10.7 L (12.0-16.0) g/dL Hct 32.2 L (36.0-46.0) % MCV 88.5 (80.0-98.0) fL MCH 29.4 (27.0-32.0) pg MCHC 33.2 (31.0-37.0) g/dL RDW Std Deviation 46.6 (28.0-62.0) fl RDW Coeff of Go 14 (11.0-15.0) % Plt Count 172 (150-400) K/uL MPV 8.90 (7.40-12.00) fL Neut % (Auto) 84.5 H (48.0-80.0) % Lymph % (Auto) 6.4 L (16.0-40.0) % [place] % (Auto) 9.1 (0.0-15.0) % Eos % (Auto) 0.0 (0.0-7.0) % Baso % (Auto) 0.0 (0.0-1.5) % Neut # (Auto) 6.3 H (1.4-5.7) K/uL Lymph # (Auto) 0.5 L (0.6-2.4) K/uL [place] # (Auto) 0.7 (0.0-0.8) K/uL Eos # (Auto) 0.0 (0.0-0.7) K/uL Baso # (Auto) 0.0 (0.0-0.1) K/uL Nucleated RBC % 0.0 /100WBC Nucleated RBCs # 0 K/uL INR Sodium 132 L (136-145) mmol/L Potassium 3.7 (3.5-5.1) mmol/L Chloride 96 L (98-107) mmol/L Carbon Dioxide 26.2 (21.0-32.0) mmol/L BUN 21 H (7.0-18.0) mg/dL Creatinine 1.4 H (0.6-1.0) mg/dL Est Cr Clr Drug Dosing 32.20 mL/min Estimated GFR (MDRD) 36.4 ml/min Glucose 121 H (74-106) mg/dL Calcium 8.6 (8.5-10.1) mg/dL Total Bilirubin 0.6 (0.2-1.0) mg/dL AST 28 (15-37) IU/L ALT 13 L (14-63) IU/L Alkaline Phosphatase 116 (46-116) U/L Troponin I < 0.050 (0.000-0.056) ng/mL B-Natriuretic Peptide 142 H (<100) PG/ML Total Protein 6.9 (6.4-8.2) g/dL Albumin 2.8 L (3.4-5.0) g/dL Globulin 4.1 H (2.6-4.0) g/dL Albumin/Globulin Ratio 0.7 L (0.9-1.6) SARS-CoV-2 RNA ([place]) (NEGATIVE) 04/18/21 Range/Units 06:05 WBC (4.0-11.0) K/uL RBC (4.30-5.90) M/uL Hgb (12.0-16.0) g/dL Hct (36.0-46.0) % MCV (80.0-98.0) fL MCH (27.0-32.0) pg MCHC (31.0-37.0) g/dL RDW Std Deviation (28.0-62.0) fl RDW Coeff of Go (11.0-15.0) % Plt Count (150-400) K/uL MPV (7.40-12.00) fL Neut % (Auto) (48.0-80.0) % Lymph % (Auto) (16.0-40.0) % [place] % (Auto) (0.0-15.0) % Eos % (Auto) (0.0-7.0) % Baso % (Auto) (0.0-1.5) % Neut # (Auto) (1.4-5.7) K/uL Lymph # (Auto) (0.6-2.4) K/uL [place] # (Auto) (0.0-0.8) K/uL Eos # (Auto) (0.0-0.7) K/uL Baso # (Auto) (0.0-0.1) K/uL Nucleated RBC % /100WBC Nucleated RBCs # K/uL INR Sodium 134 L (136-145) mmol/L Potassium 4.2 (3.5-5.1) mmol/L Chloride 99 (98-107) mmol/L Carbon Dioxide 28.1 (21.0-32.0) mmol/L BUN 26 H (7.0-18.0) mg/dL Creatinine 1.4 H (0.6-1.0) mg/dL Est Cr Clr Drug Dosing 32.12 mL/min Estimated GFR (MDRD) 36.4 ml/min Glucose 154 H (74-106) mg/dL Calcium 8.7 (8.5-10.1) mg/dL Total Bilirubin (0.2-1.0) mg/dL AST (15-37) IU/L ALT (14-63) IU/L Alkaline Phosphatase (46-116) U/L Troponin I (0.000-0.056) ng/mL B-Natriuretic Peptide (<100) PG/ML Total Protein (6.4-8.2) g/dL Albumin (3.4-5.0) g/dL Globulin (2.6-4.0) g/dL Albumin/Globulin Ratio (0.9-1.6) SARS-CoV-2 RNA ([place]) (NEGATIVE) Result Diagrams: 04/18/21 06:05 04/18/21 06:05 Kam Results Last 24 hrs: Microbiology 04/17/21 16:26 Respiratory Syncytial Virus Ag Scrn - Final Nasopharyngeal Swab Positive Rsv Antigen Influenza Type A Antigen Screen - Final NEGATIVE INFLUENZA A VIRUS AG REFERENCE RANGE: NEGATIVE Influenza Type B Antigen Screen - Final NEGATIVE INFLUENZA B VIRUS AG REFERENCE RANGE: NEGATIVE Sepsis Event Note - Evaluation Sepsis Screening Result: No Definite Risk - Focused Exam Vital Signs: Vital Signs Temp Pulse Resp BP BP Pulse Ox 04/18/21 09:06 145/65 H 04/18/21 09:00 36.2 C 68 18 145/65 H 96 04/18/21 04:00 36.2 C 72 20 129/60 95 - Problem List & Annotations (1) RSV (respiratory syncytial virus infection) SNOMED Code(s): 06956483 Code(s): B97.4 - RESPIRATORY SYNCYTIAL VIRUS CAUSING DISEASES CLASSD [id number] Status: Acute Current Visit: Yes (2) Acute bronchiolitis SNOMED Code(s): 3115799 Code(s): J21.9 - ACUTE BRONCHIOLITIS, UNSPECIFIED Status: Acute Current Visit: Yes - Problem List Review Problem List Initiated/Reviewed/Updated: Yes - My Orders Last 24 Hours: My Active Orders 04/18/21 00:05 Antiembolic Devices [RC] PER UNIT ROUTINE Oxygen Therapy [RC] PRN RT Aerosol Therapy [RC] ASDIRECTED Up ad Nelly [RC] ASDIRECTED VTE/DVT Education [RC] PER UNIT ROUTINE Vital Signs [RC] Q4H Sequential Compression Device [OM.PC] Per Unit Routine Resuscitation Status Routine 04/18/21 00:30 Azithromycin [Zithromax] 500 mg Sodium Chloride 0.9% [Normal Saline AdvBag] 250 ml IV Q24H 04/18/21 06:00 Albuterol/Ipratropium [DuoNeb 3.0-0.5 MG/3 ML] 3 ml NEB Q6HRRT 04/18/21 Breakfast Regular Diet [DIET] 04/18/21 07:30 Levothyroxine [Synthroid] 100 mcg PO ACBRK 04/18/21 09:00 Enalapril [Vasotec] 10 mg PO DAILY Famotidine [Pepcid] 20 mg PO DAILY hydroCHLOROthiazide 12.5 mg PO DAILY 04/18/21 11:45 ClonazePAM [KlonoPIN] 0.5 mg PO TID PRN 04/18/21 13:13 Admission Status [Patient Status] [ADT] Routine 04/18/21 18:30 cefTRIAXone [Rocephin in Dextrose,Iso-Osm 1 GM/50 ML] 1 gm Premix Bag 1 bag IV Q24H 04/18/21 21:00 Mirtazapine [Remeron] 60 mg PO BEDTIME 04/19/21 05:11 BASIC METABOLIC PANEL,BMP [CHEM] AM BASIC METABOLIC PANEL,BMP [CHEM] AM CBC WITH AUTO DIFF [HEME] AM CBC WITH AUTO DIFF [HEME] AM 04/20/21 05:11 BASIC METABOLIC PANEL,BMP [CHEM] AM CBC WITH AUTO DIFF [HEME] AM 04/21/21 05:11 BASIC METABOLIC PANEL,BMP [CHEM] AM CBC WITH AUTO DIFF [HEME] AM - Plan Plan:: 80 yo female admitted for RSV pneumonia with hypoxia. Pneumonia: on rocephin and azithromycin for possible bacterial infection Hypoxia: on 4 L NC
[2021-04-18] MEDS: lamoTRIgine 100 MG Tab PO SCH (13:54)
[2021-04-18] MEDS: Heparin Sodium 5,000 Units/ML Vial SUBCUT SCH (13:54)
[2021-04-18] MEDS: ClonazePAM 0.5 MG Tab PO PRN ×2 (14:16→23:06)
[2021-04-18] MEDS: cefTRIAXone 1 GM in Premix Bag 1 BAG IV SCH (18:22)
[2021-04-18] MEDS: Mirtazapine 15 MG Tab PO SCH (21:22)
[2021-04-18] MEDS: busPIRone 5 MG Tab PO SCH (21:22)
[2021-04-19] MEDS: Albuterol/Ipratropium 3.0-0.5 MG/3 ML Neb Soln NEB SCH ×4 (00:36→17:10)
[2021-04-19] MEDS: Azithromycin 500 MG in Sodium Chloride 0.9% 250 ML IV SCH (00:36)
[2021-04-19] MEDS: Heparin Sodium 5,000 Units/ML Vial SUBCUT SCH ×2 (00:38→12:45)
[2021-04-19] MEDS: Levothyroxine 100 MCG Tab PO SCH (06:34)
[2021-04-19 07:26] LABS: CARBON DIOXIDE,CO2 29.2 mmol/L (21.0-32.0); POTASSIUM,K 3.6 mmol/L (3.5-5.1)
[2021-04-19] MEDS: Hydrochlorothiazide 12.5 MG Cap PO SCH (09:39)
[2021-04-19] MEDS: Multivitamin Tab PO SCH (09:40)
[2021-04-19] MEDS: busPIRone 5 MG Tab PO SCH ×2 (09:40→21:46)
[2021-04-19] MEDS: Famotidine 20 MG Tab PO SCH (09:40)
[2021-04-19] MEDS: lamoTRIgine 100 MG Tab PO SCH (09:41)
[2021-04-19] MEDS: guaiFENesin/Dextromethorphan 100-10 MG/5 ML Soln 10 ML Cup PO PRN ×2 (09:48→21:44)
[2021-04-19] MEDS: ClonazePAM 0.5 MG Tab PO PRN ×2 (09:48→21:46)
--- NOTE | 2021-04-19 12:05 | PCM.PN ---
- General Info Date of Service: 04/19/21 - Review of Systems Systems Review Comment:: reports cough, shortness of breath stable - Patient Data Vitals - Most Recent: Last Vital Signs Temp 36.3 C 04/19/21 08:00 Pulse 69 04/19/21 08:00 Resp 20 04/19/21 08:00 BP 125/58 L 04/19/21 09:40 Pulse Ox 90 L 04/19/21 08:00 Weight - Most Recent: 74.344 kg I&O - Last 24 Hours: Intake & Output 04/18/21 04/19/21 04/19/21 22:59 06:59 14:59 Intake Total 550 650 Output Total 400 450 Balance 150 200 Lab Results Last 24 Hours: Laboratory Results - last 24 hr 04/19/21 04/19/21 Range/Units 06:45 06:45 WBC 5.30 (4.0-11.0) K/uL RBC 3.67 L (4.30-5.90) M/uL Hgb 10.6 L (12.0-16.0) g/dL Hct 32.6 L (36.0-46.0) % MCV 88.8 (80.0-98.0) fL MCH 28.9 (27.0-32.0) pg MCHC 32.5 (31.0-37.0) g/dL RDW Std Deviation 47.0 (28.0-62.0) fl RDW Coeff of Go 14 (11.0-15.0) % Plt Count 213 (150-400) K/uL MPV 9.10 (7.40-12.00) fL Neut % (Auto) 66.7 (48.0-80.0) % Lymph % (Auto) 21.7 (16.0-40.0) % [place] % (Auto) 10.6 (0.0-15.0) % Eos % (Auto) 0.8 (0.0-7.0) % Baso % (Auto) 0.2 (0.0-1.5) % Neut # (Auto) 3.5 (1.4-5.7) K/uL Lymph # (Auto) 1.2 (0.6-2.4) K/uL [place] # (Auto) 0.6 (0.0-0.8) K/uL Eos # (Auto) 0.0 (0.0-0.7) K/uL Baso # (Auto) 0.0 (0.0-0.1) K/uL Nucleated RBC % 0.0 /100WBC Nucleated RBCs # 0 K/uL Sodium 139 (136-145) mmol/L Potassium 3.6 (3.5-5.1) mmol/L Chloride 102 (98-107) mmol/L Carbon Dioxide 29.2 (21.0-32.0) mmol/L BUN 28 H (7.0-18.0) mg/dL Creatinine 1.5 H (0.6-1.0) mg/dL Est Cr Clr Drug Dosing 29.98 mL/min Estimated GFR (MDRD) 33.6 ml/min Glucose 101 (74-106) mg/dL Calcium 8.6 (8.5-10.1) mg/dL Med Orders - Current: Current Medications Acetaminophen (Acetaminophen 325 Mg Tab) 325 mg PO Q4H PRN PRN Reason: Pain Albuterol/Ipratropium (Albuterol/Ipratropium 3.0-0.5 Mg/3 Ml Neb Soln) 3 ml NEB Q6HRRT [facility] Last Admin: 04/19/21 06:11 Dose: 3 ml Documented by: Buspirone HCl (Buspirone 5 Mg Tab) 15 mg PO BID [facility] Last Admin: 04/19/21 09:40 Dose: 15 mg Documented by: Clonazepam (Clonazepam 0.5 Mg Tab) 0.5 mg PO TID PRN PRN Reason: Anxiety Last Admin: 04/19/21 09:48 Dose: 0.5 mg Documented by: Enalapril Maleate (Enalapril 10 Mg Tab) 10 mg PO DAILY [facility] Last Admin: 04/19/21 09:40 Dose: 10 mg Documented by: Famotidine (Famotidine 20 Mg Tab) 20 mg PO DAILY [facility] Last Admin: 04/19/21 09:40 Dose: 20 mg Documented by: Guaifenesin/Dextromethorphan (Guaifenesin/Dextromethorphan 100-10 Mg/5 Ml Soln 10 Ml Cup) 10 ml PO Q6H PRN PRN Reason: Cough Last Admin: 04/19/21 09:48 Dose: 10 ml Documented by: Heparin Sodium (Porcine) (Heparin Sodium 5,000 Units/Ml Vial) 5,000 units SUBCUT Q12H [facility] Last Admin: 04/19/21 00:38 Dose: 5,000 units Documented by: Hydrochlorothiazide (Hydrochlorothiazide 12.5 Mg Cap) 12.5 mg PO DAILY [facility] Last Admin: 04/19/21 09:39 Dose: 12.5 mg Documented by: Ceftriaxone Sodium/Dextrose 1 (gm/ Premix) 50 mls @ 100 mls/hr IV Q24H [facility] Last Admin: 04/18/21 18:22 Dose: 100 mls/hr Documented by: Azithromycin 500 mg/ Sodium (Chloride) 250 mls @ 250 mls/hr IV Q24H [facility] Last Admin: 04/19/21 00:36 Dose: 250 mls/hr Documented by: Lamotrigine (Lamotrigine 100 Mg Tab) 200 mg PO DAILY [facility] Last Admin: 04/19/21 09:41 Dose: 200 mg Documented by: Levothyroxine Sodium (Levothyroxine 100 Mcg Tab) 100 mcg PO ACBRK [facility] Last Admin: 04/19/21 06:34 Dose: 100 mcg Documented by: Mirtazapine (Mirtazapine 15 Mg Tab) 60 mg PO BEDTIME [facility] Last Admin: 04/18/21 21:22 Dose: 60 mg Documented by: Multivitamins/Minerals/Vitamin C (Multivitamin Tab) 1 tab PO DAILY [facility] Last Admin: 04/19/21 09:40 Dose: 1 tab Documented by: Desvenlafaxine Er (100 Mg Tablet) 1 each PO DAILY [facility] Sodium Chloride (Sodium Chloride 0.9% 10 Ml Syringe) 10 ml FLUSH ASDIRECTED PRN PRN Reason: Keep Vein Open Last Admin: 04/17/21 18:21 Dose: 10 ml Documented by: Sodium Chloride (Sodium Chloride 0.9% 2.5 Ml Syringe) 2.5 ml FLUSH ASDIRECTED PRN PRN Reason: Keep Vein Open Last Admin: 04/17/21 18:21 Dose: 2.5 ml Documented by: Discontinued Medications Albuterol/Ipratropium (Albuterol/Ipratropium 3.0-0.5 Mg/3 Ml Neb Soln) 3 ml NEB ONETIME ONE Stop: 04/17/21 18:15 Last Admin: 11/08/21 18:22 Dose: 3 ml Documented by: Clonazepam (Clonazepam 0.5 Mg Tab) 0.25 - 0.5 mg PO TID PRN PRN Reason: Anxiety Last Admin: 04/18/21 00:59 Dose: 0.5 mg Documented by: Ceftriaxone Sodium/Dextrose 1 (gm/ Premix) 50 mls @ 100 mls/hr IV ONETIME ONE Stop: 04/17/21 19:09 Last Admin: 04/17/21 18:51 Dose: 100 mls/hr Documented by: Iopamidol (Iopamidol 755 Mg/Ml 500 Ml Multipack Bottle) 50 ml IVPUSH ONETIME STA Stop: 04/17/21 19:47 Last Admin: 04/17/21 19:47 Dose: 50 ml Documented by: Methylprednisolone Sodium Succinate (Methylprednisolone Sodium Succinate 125 Mg/2 Ml Sdv) 80 mg IVPUSH ONETIME ONE Stop: 04/17/21 18:16 Last Admin: 04/17/21 18:51 Dose: 80 mg Documented by: Mirtazapine (Mirtazapine 15 Mg Tab) 15 mg PO BEDTIME [facility] Last Admin: 04/18/21 00:59 Dose: 15 mg Documented by: Desvenlafaxine Er (100 Mg Tablet) 1 each PO DAILY [facility] Last Admin: 04/19/21 09:41 Dose: Not Given Documented by: - Exam General: Alert, Oriented Lungs: Normal Respiratory Effort, Rhonchi Cardiovascular: Regular Rate, Regular Rhythm GI/Abdominal Exam: Soft, Non-Tender, No Distention Extremities: Non-Tender, No Pedal Edema Skin: Warm, Dry, Intact Neurological: No New Focal Deficit - Patient Data Lab Results Last 24 hrs: Laboratory Results - last 24 hr 04/19/21 04/19/21 Range/Units 06:45 06:45 WBC 5.30 (4.0-11.0) K/uL RBC 3.67 L (4.30-5.90) M/uL Hgb 10.6 L (12.0-16.0) g/dL Hct 32.6 L (36.0-46.0) % MCV 88.8 (80.0-98.0) fL MCH 28.9 (27.0-32.0) pg MCHC 32.5 (31.0-37.0) g/dL RDW Std Deviation 47.0 (28.0-62.0) fl RDW Coeff of Go 14 (11.0-15.0) % Plt Count 213 (150-400) K/uL MPV 9.10 (7.40-12.00) fL Neut % (Auto) 66.7 (48.0-80.0) % Lymph % (Auto) 21.7 (16.0-40.0) % [place] % (Auto) 10.6 (0.0-15.0) % Eos % (Auto) 0.8 (0.0-7.0) % Baso % (Auto) 0.2 (0.0-1.5) % Neut # (Auto) 3.5 (1.4-5.7) K/uL Lymph # (Auto) 1.2 (0.6-2.4) K/uL [place] # (Auto) 0.6 (0.0-0.8) K/uL Eos # (Auto) 0.0 (0.0-0.7) K/uL Baso # (Auto) 0.0 (0.0-0.1) K/uL Nucleated RBC % 0.0 /100WBC Nucleated RBCs # 0 K/uL Sodium 139 (136-145) mmol/L Potassium 3.6 (3.5-5.1) mmol/L Chloride 102 (98-107) mmol/L Carbon Dioxide 29.2 (21.0-32.0) mmol/L BUN 28 H (7.0-18.0) mg/dL Creatinine 1.5 H (0.6-1.0) mg/dL Est Cr Clr Drug Dosing 29.98 mL/min Estimated GFR (MDRD) 33.6 ml/min Glucose 101 (74-106) mg/dL Calcium 8.6 (8.5-10.1) mg/dL Result Diagrams: 04/19/21 06:45 04/19/21 06:45 Sepsis Event Note - Evaluation Sepsis Screening Result: No Definite Risk - Focused Exam Vital Signs: Vital Signs Temp Pulse Resp BP BP Pulse Ox 04/19/21 09:40 125/58 L 04/19/21 08:00 36.3 C 69 20 125/58 L 90 L 04/19/21 04:02 36.9 C 55 L 21 H 115/56 L 93 L 04/19/21 00:39 36.4 C 60 20 116/55 L 92 L - Problem List & Annotations (1) RSV (respiratory syncytial virus infection) SNOMED Code(s): 79772068 Code(s): B97.4 - RESPIRATORY SYNCYTIAL VIRUS CAUSING DISEASES CLASSD [id number] Status: Acute Current Visit: Yes (2) Acute bronchiolitis SNOMED Code(s): 1926568 Code(s): J21.9 - ACUTE BRONCHIOLITIS, UNSPECIFIED Status: Acute Current Visit: Yes - Problem List Review Problem List Initiated/Reviewed/Updated: Yes - My Orders Last 24 Hours: My Active Orders 04/18/21 11:45 ClonazePAM [KlonoPIN] 0.5 mg PO TID PRN 04/18/21 13:13 Admission Status [Patient Status] [ADT] Routine 04/18/21 13:30 Heparin Sodium 5,000 units SUBCUT Q12H 04/18/21 14:00 lamoTRIgine 200 mg PO DAILY 04/18/21 18:30 cefTRIAXone [Rocephin in Dextrose,Iso-Osm 1 GM/50 ML] 1 gm Premix Bag 1 bag IV Q24H 04/18/21 21:00 Mirtazapine [Remeron] 60 mg PO BEDTIME busPIRone [Buspar] 15 mg PO BID 04/18/21 23:30 Acetaminophen [TylenoL] 325 mg PO Q4H PRN 04/19/21 09:00 Multivitamins [Tab-A-Christy] 1 tab PO DAILY 04/19/21 09:28 Dextromethorphan/guaiFENesin [Robitussin DM] 10 ml PO Q6H PRN 04/19/21 12:00 Patient's Own Medication [Ptom] 1 each PO DAILY 04/20/21 05:11 BASIC METABOLIC PANEL,BMP [CHEM] AM CBC WITH AUTO DIFF [HEME] AM 04/21/21 05:11 BASIC METABOLIC PANEL,BMP [CHEM] AM CBC WITH AUTO DIFF [HEME] AM - Plan Plan:: 80 yo female admitted for RSV pneumonia with hypoxia. Pneumonia: continue Rocephin and azithromycin for possible bacterial infection Hypoxia: on 2 L NC
[2021-04-19] MEDS: cefTRIAXone 1 GM in Premix Bag 1 BAG IV SCH (17:34)
[2021-04-19] MEDS: Mirtazapine 15 MG Tab PO SCH (21:45)
[2021-04-20] MEDS: Albuterol/Ipratropium 3.0-0.5 MG/3 ML Neb Soln NEB SCH ×4 (01:08→17:55)
[2021-04-20] MEDS: Azithromycin 500 MG in Sodium Chloride 0.9% 250 ML IV SCH (01:08)
[2021-04-20] MEDS: Heparin Sodium 5,000 Units/ML Vial SUBCUT SCH ×2 (01:08→13:23)
[2021-04-20] MEDS: guaiFENesin/Dextromethorphan 100-10 MG/5 ML Soln 10 ML Cup PO PRN ×3 (05:09→20:58)
[2021-04-20] MEDS: Levothyroxine 100 MCG Tab PO SCH (06:49)
[2021-04-20 07:45] LABS: POTASSIUM,K 3.3 mmol/L (3.5-5.1)
[2021-04-20] MEDS: Famotidine 20 MG Tab PO SCH (08:29)
[2021-04-20] MEDS: Hydrochlorothiazide 12.5 MG Cap PO SCH (08:29)
[2021-04-20] MEDS: Multivitamin Tab PO SCH (08:30)
[2021-04-20] MEDS: ClonazePAM 0.5 MG Tab PO PRN (08:30)
[2021-04-20] MEDS: lamoTRIgine 100 MG Tab PO SCH (08:30)
[2021-04-20] MEDS: busPIRone 5 MG Tab PO SCH ×2 (08:30→20:50)
[2021-04-20] MEDS ORDERED: Potassium Chloride 20 MEQ Tab.ER PO ONE (12:52)
--- NOTE | 2021-04-20 12:54 | PCM.PN ---
- General Info Date of Service: 04/20/21 - Review of Systems Systems Review Comment:: feels weak after coughing this morning. - Patient Data Vitals - Most Recent: Last Vital Signs Temp 35.6 C L 04/20/21 09:00 Pulse 75 04/20/21 09:00 Resp 22 H 04/20/21 09:00 BP 147/67 H 04/20/21 09:00 Pulse Ox 92 L 04/20/21 09:00 Weight - Most Recent: 74.344 kg I&O - Last 24 Hours: Intake & Output 04/19/21 04/20/21 04/20/21 22:59 06:59 14:59 Intake Total 640 800 Output Total 450 Balance 640 350 Lab Results Last 24 Hours: Laboratory Results - last 24 hr 04/20/21 04/20/21 Range/Units 05:50 05:50 WBC 4.86 (4.0-11.0) K/uL RBC 3.71 L (4.30-5.90) M/uL Hgb 10.7 L (12.0-16.0) g/dL Hct 33.3 L (36.0-46.0) % MCV 89.8 (80.0-98.0) fL MCH 28.8 (27.0-32.0) pg MCHC 32.1 (31.0-37.0) g/dL RDW Std Deviation 47.4 (28.0-62.0) fl RDW Coeff of Go 14 (11.0-15.0) % Plt Count 262 (150-400) K/uL MPV 9.40 (7.40-12.00) fL Neut % (Auto) 54.8 (48.0-80.0) % Lymph % (Auto) 26.5 (16.0-40.0) % [place] % (Auto) 15.6 H (0.0-15.0) % Eos % (Auto) 2.7 (0.0-7.0) % Baso % (Auto) 0.4 (0.0-1.5) % Neut # (Auto) 2.7 (1.4-5.7) K/uL Lymph # (Auto) 1.3 (0.6-2.4) K/uL [place] # (Auto) 0.8 (0.0-0.8) K/uL Eos # (Auto) 0.1 (0.0-0.7) K/uL Baso # (Auto) 0.0 (0.0-0.1) K/uL Nucleated RBC % 0.0 /100WBC Nucleated RBCs # 0 K/uL Sodium 138 (136-145) mmol/L Potassium 3.3 L (3.5-5.1) mmol/L Chloride 101 (98-107) mmol/L Carbon Dioxide 28.0 (21.0-32.0) mmol/L BUN 22 H (7.0-18.0) mg/dL Creatinine 1.3 H (0.6-1.0) mg/dL Est Cr Clr Drug Dosing 34.59 mL/min Estimated GFR (MDRD) 39.6 ml/min Glucose 101 (74-106) mg/dL Calcium 8.8 (8.5-10.1) mg/dL Med Orders - Current: Current Medications Acetaminophen (Acetaminophen 325 Mg Tab) 325 mg PO Q4H PRN PRN Reason: Pain Albuterol/Ipratropium (Albuterol/Ipratropium 3.0-0.5 Mg/3 Ml Neb Soln) 3 ml NEB Q6HRRT [facility] Last Admin: 04/20/21 06:49 Dose: 3 ml Documented by: Buspirone HCl (Buspirone 5 Mg Tab) 15 mg PO BID [facility] Last Admin: 04/20/21 08:30 Dose: 15 mg Documented by: Clonazepam (Clonazepam 0.5 Mg Tab) 0.5 mg PO TID PRN PRN Reason: Anxiety Last Admin: 04/20/21 08:30 Dose: 0.5 mg Documented by: Enalapril Maleate (Enalapril 10 Mg Tab) 10 mg PO DAILY [facility] Last Admin: 04/20/21 08:31 Dose: 10 mg Documented by: Famotidine (Famotidine 20 Mg Tab) 20 mg PO DAILY [facility] Last Admin: 04/20/21 08:29 Dose: 20 mg Documented by: Guaifenesin/Dextromethorphan (Guaifenesin/Dextromethorphan 100-10 Mg/5 Ml Soln 10 Ml Cup) 10 ml PO Q6H PRN PRN Reason: Cough Last Admin: 04/20/21 05:09 Dose: 10 ml Documented by: Heparin Sodium (Porcine) (Heparin Sodium 5,000 Units/Ml Vial) 5,000 units SUBCUT Q12H [facility] Last Admin: 04/20/21 01:08 Dose: 5,000 units Documented by: Hydrochlorothiazide (Hydrochlorothiazide 12.5 Mg Cap) 12.5 mg PO DAILY [facility] Last Admin: 04/20/21 08:29 Dose: 12.5 mg Documented by: Ceftriaxone Sodium/Dextrose 1 (gm/ Premix) 50 mls @ 100 mls/hr IV Q24H [facility] Last Admin: 04/19/21 17:34 Dose: 100 mls/hr Documented by: Azithromycin 500 mg/ Sodium (Chloride) 250 mls @ 250 mls/hr IV Q24H [facility] Last Admin: 04/20/21 01:08 Dose: 250 mls/hr Documented by: Lamotrigine (Lamotrigine 100 Mg Tab) 200 mg PO DAILY [facility] Last Admin: 04/20/21 08:30 Dose: 200 mg Documented by: Levothyroxine Sodium (Levothyroxine 100 Mcg Tab) 100 mcg PO ACBRK [facility] Last Admin: 04/20/21 06:49 Dose: 100 mcg Documented by: Mirtazapine (Mirtazapine 15 Mg Tab) 60 mg PO BEDTIME [facility] Last Admin: 04/19/21 21:45 Dose: 60 mg Documented by: Multivitamins/Minerals/Vitamin C (Multivitamin Tab) 1 tab PO DAILY [facility] Last Admin: 04/20/21 08:30 Dose: 1 tab Documented by: Desvenlafaxine Er (100 Mg Tablet) 1 each PO DAILY [facility] Last Admin: 04/20/21 08:30 Dose: 1 each Documented by: Sodium Chloride (Sodium Chloride 0.9% 10 Ml Syringe) 10 ml FLUSH ASDIRECTED PRN PRN Reason: Keep Vein Open Last Admin: 04/17/21 18:21 Dose: 10 ml Documented by: Sodium Chloride (Sodium Chloride 0.9% 2.5 Ml Syringe) 2.5 ml FLUSH ASDIRECTED PRN PRN Reason: Keep Vein Open Last Admin: 04/17/21 18:21 Dose: 2.5 ml Documented by: Discontinued Medications Albuterol/Ipratropium (Albuterol/Ipratropium 3.0-0.5 Mg/3 Ml Neb Soln) 3 ml NEB ONETIME ONE Stop: 04/17/21 18:15 Last Admin: 04/17/21 18:22 Dose: 3 ml Documented by: Clonazepam (Clonazepam 0.5 Mg Tab) 0.25 - 0.5 mg PO TID PRN PRN Reason: Anxiety Last Admin: 04/18/21 00:59 Dose: 0.5 mg Documented by: Ceftriaxone Sodium/Dextrose 1 (gm/ Premix) 50 mls @ 100 mls/hr IV ONETIME ONE Stop: 04/17/21 19:09 Last Admin: 04/17/21 18:51 Dose: 100 mls/hr Documented by: Iopamidol (Iopamidol 755 Mg/Ml 500 Ml Multipack Bottle) 50 ml IVPUSH ONETIME STA Stop: 04/17/21 19:47 Last Admin: 04/17/21 19:47 Dose: 50 ml Documented by: Methylprednisolone Sodium Succinate (Methylprednisolone Sodium Succinate 125 Mg/2 Ml Sdv) 80 mg IVPUSH ONETIME ONE Stop: 04/17/21 18:16 Last Admin: 04/17/21 18:51 Dose: 80 mg Documented by: Mirtazapine (Mirtazapine 15 Mg Tab) 15 mg PO BEDTIME [facility] Last Admin: 04/18/21 00:59 Dose: 15 mg Documented by: Desvenlafaxine Er (100 Mg Tablet) 1 each PO DAILY [facility] Last Admin: 04/19/21 09:41 Dose: Not Given Documented by: - Exam General: Alert, Oriented Neck: Supple Lungs: Clear to Auscultation, Normal Respiratory Effort Cardiovascular: Regular Rate, Regular Rhythm GI/Abdominal Exam: Soft, Non-Tender, No Distention Extremities: Non-Tender, No Pedal Edema Skin: Warm, Dry, Intact Neurological: No New Focal Deficit - Patient Data Lab Results Last 24 hrs: Laboratory Results - last 24 hr 04/20/21 04/20/21 Range/Units 05:50 05:50 WBC 4.86 (4.0-11.0) K/uL RBC 3.71 L (4.30-5.90) M/uL Hgb 10.7 L (12.0-16.0) g/dL Hct 33.3 L (36.0-46.0) % MCV 89.8 (80.0-98.0) fL MCH 28.8 (27.0-32.0) pg MCHC 32.1 (31.0-37.0) g/dL RDW Std Deviation 47.4 (28.0-62.0) fl RDW Coeff of Go 14 (11.0-15.0) % Plt Count 262 (150-400) K/uL MPV 9.40 (7.40-12.00) fL Neut % (Auto) 54.8 (48.0-80.0) % Lymph % (Auto) 26.5 (16.0-40.0) % [place] % (Auto) 15.6 H (0.0-15.0) % Eos % (Auto) 2.7 (0.0-7.0) % Baso % (Auto) 0.4 (0.0-1.5) % Neut # (Auto) 2.7 (1.4-5.7) K/uL Lymph # (Auto) 1.3 (0.6-2.4) K/uL [place] # (Auto) 0.8 (0.0-0.8) K/uL Eos # (Auto) 0.1 (0.0-0.7) K/uL Baso # (Auto) 0.0 (0.0-0.1) K/uL Nucleated RBC % 0.0 /100WBC Nucleated RBCs # 0 K/uL Sodium 138 (136-145) mmol/L Potassium 3.3 L (3.5-5.1) mmol/L Chloride 101 (98-107) mmol/L Carbon Dioxide 28.0 (21.0-32.0) mmol/L BUN 22 H (7.0-18.0) mg/dL Creatinine 1.3 H (0.6-1.0) mg/dL Est Cr Clr Drug Dosing 34.59 mL/min Estimated GFR (MDRD) 39.6 ml/min Glucose 101 (74-106) mg/dL Calcium 8.8 (8.5-10.1) mg/dL Result Diagrams: 04/20/21 05:50 04/20/21 05:50 Sepsis Event Note - Evaluation Sepsis Screening Result: No Definite Risk - Focused Exam Vital Signs: Vital Signs Temp Pulse Resp BP BP Pulse Ox 04/20/21 09:00 35.6 C L 75 22 H 147/67 H 92 L 04/20/21 08:31 147/67 H 04/20/21 05:04 36.3 C 62 20 137/62 91 L 04/20/21 01:13 36.6 C 62 21 H 135/59 L 92 L - Problem List & Annotations (1) RSV (respiratory syncytial virus infection) SNOMED Code(s): 66155372 Code(s): B97.4 - RESPIRATORY SYNCYTIAL VIRUS CAUSING DISEASES CLASSD ELSWHR Status: Acute Current Visit: Yes (2) Acute bronchiolitis SNOMED Code(s): 0462940 Code(s): J21.9 - ACUTE BRONCHIOLITIS, UNSPECIFIED Status: Acute Current Visit: Yes - Problem List Review Problem List Initiated/Reviewed/Updated: Yes - My Orders Last 24 Hours: My Active Orders 04/19/21 12:00 Patient's Own Medication [Ptom] 1 each PO DAILY 04/20/21 12:52 Potassium Chloride [Klor-Con M20] 40 meq PO ONETIME ONE 04/21/21 05:11 BASIC METABOLIC PANEL,BMP [CHEM] AM CBC WITH AUTO DIFF [HEME] AM - Plan Plan:: 80 yo female admitted for RSV pneumonia with hypoxia. Pneumonia: continue Rocephin and azithromycin for possible bacterial infection Hypoxia: on 2 L NC
[2021-04-20] MEDS: cefTRIAXone 1 GM in Premix Bag 1 BAG IV SCH (18:08)
[2021-04-20] MEDS: Mirtazapine 15 MG Tab PO SCH (20:50)
[2021-04-21] MEDS: Heparin Sodium 5,000 Units/ML Vial SUBCUT SCH ×2 (00:59→12:30)
[2021-04-21] MEDS: Albuterol/Ipratropium 3.0-0.5 MG/3 ML Neb Soln NEB SCH ×4 (01:00→17:55)
[2021-04-21] MEDS: Azithromycin 500 MG in Sodium Chloride 0.9% 250 ML IV SCH (01:00)
[2021-04-21] MEDS: guaiFENesin/Dextromethorphan 100-10 MG/5 ML Soln 10 ML Cup PO PRN ×2 (05:27→21:45)
[2021-04-21] MEDS: Levothyroxine 100 MCG Tab PO SCH (07:01)
--- NOTE | 2021-04-21 07:02 | PCM.PN ---
- General Info Date of Service: 04/21/21 - Review of Systems Systems Review Comment:: feeling better, strength improving, may be ready for home tomorrow - Patient Data Vitals - Most Recent: Last Vital Signs Temp 36.4 C 04/21/21 05:00 Pulse 61 04/21/21 05:00 Resp 18 04/21/21 05:00 BP 117/56 L 04/21/21 05:00 Pulse Ox 91 L 04/21/21 05:00 Weight - Most Recent: 74.344 kg I&O - Last 24 Hours: Intake & Output 04/20/21 04/21/21 04/21/21 22:59 06:59 14:59 Intake Total 900 350 Output Total 750 400 Balance 150 -50 Lab Results Last 24 Hours: Laboratory Results - last 24 hr 04/20/21 04/20/21 Range/Units 05:50 05:50 WBC 4.86 (4.0-11.0) K/uL RBC 3.71 L (4.30-5.90) M/uL Hgb 10.7 L (12.0-16.0) g/dL Hct 33.3 L (36.0-46.0) % MCV 89.8 (80.0-98.0) fL MCH 28.8 (27.0-32.0) pg MCHC 32.1 (31.0-37.0) g/dL RDW Std Deviation 47.4 (28.0-62.0) fl RDW Coeff of Go 14 (11.0-15.0) % Plt Count 262 (150-400) K/uL MPV 9.40 (7.40-12.00) fL Neut % (Auto) 54.8 (48.0-80.0) % Lymph % (Auto) 26.5 (16.0-40.0) % [place] % (Auto) 15.6 H (0.0-15.0) % Eos % (Auto) 2.7 (0.0-7.0) % Baso % (Auto) 0.4 (0.0-1.5) % Neut # (Auto) 2.7 (1.4-5.7) K/uL Lymph # (Auto) 1.3 (0.6-2.4) K/uL [place] # (Auto) 0.8 (0.0-0.8) K/uL Eos # (Auto) 0.1 (0.0-0.7) K/uL Baso # (Auto) 0.0 (0.0-0.1) K/uL Nucleated RBC % 0.0 /100WBC Nucleated RBCs # 0 K/uL Sodium 138 (136-145) mmol/L Potassium 3.3 L (3.5-5.1) mmol/L Chloride 101 (98-107) mmol/L Carbon Dioxide 28.0 (21.0-32.0) mmol/L BUN 22 H (7.0-18.0) mg/dL Creatinine 1.3 H (0.6-1.0) mg/dL Est Cr Clr Drug Dosing 34.59 mL/min Estimated GFR (MDRD) 39.6 ml/min Glucose 101 (74-106) mg/dL Calcium 8.8 (8.5-10.1) mg/dL Med Orders - Current: Current Medications Acetaminophen (Acetaminophen 325 Mg Tab) 325 mg PO Q4H PRN PRN Reason: Pain Albuterol/Ipratropium (Albuterol/Ipratropium 3.0-0.5 Mg/3 Ml Neb Soln) 3 ml NEB Q6HRRT [facility] Last Admin: 04/21/21 01:00 Dose: 3 ml Documented by: Buspirone HCl (Buspirone 5 Mg Tab) 15 mg PO BID [facility] Last Admin: 04/20/21 20:50 Dose: 15 mg Documented by: Clonazepam (Clonazepam 0.5 Mg Tab) 0.5 mg PO TID PRN PRN Reason: Anxiety Last Admin: 04/20/21 08:30 Dose: 0.5 mg Documented by: Enalapril Maleate (Enalapril 10 Mg Tab) 10 mg PO DAILY [facility] Last Admin: 04/20/21 08:31 Dose: 10 mg Documented by: Famotidine (Famotidine 20 Mg Tab) 20 mg PO DAILY [facility] Last Admin: 04/20/21 08:29 Dose: 20 mg Documented by: Guaifenesin/Dextromethorphan (Guaifenesin/Dextromethorphan 100-10 Mg/5 Ml Soln 10 Ml Cup) 10 ml PO Q6H PRN PRN Reason: Cough Last Admin: 04/21/21 05:27 Dose: 10 ml Documented by: Heparin Sodium (Porcine) (Heparin Sodium 5,000 Units/Ml Vial) 5,000 units SUBCUT Q12H [facility] Last Admin: 04/21/21 00:59 Dose: 5,000 units Documented by: Hydrochlorothiazide (Hydrochlorothiazide 12.5 Mg Cap) 12.5 mg PO DAILY [facility] Last Admin: 04/20/21 08:29 Dose: 12.5 mg Documented by: Ceftriaxone Sodium/Dextrose 1 (gm/ Premix) 50 mls @ 100 mls/hr IV Q24H [facility] Last Admin: 04/20/21 18:08 Dose: 100 mls/hr Documented by: Azithromycin 500 mg/ Sodium (Chloride) 250 mls @ 250 mls/hr IV Q24H [facility] Last Admin: 04/21/21 01:00 Dose: 250 mls/hr Documented by: Lamotrigine (Lamotrigine 100 Mg Tab) 200 mg PO DAILY [facility] Last Admin: 04/20/21 08:30 Dose: 200 mg Documented by: Levothyroxine Sodium (Levothyroxine 100 Mcg Tab) 100 mcg PO ACBRK [facility] Last Admin: 04/21/21 07:01 Dose: 100 mcg Documented by: Mirtazapine (Mirtazapine 15 Mg Tab) 60 mg PO BEDTIME [facility] Last Admin: 04/20/21 20:50 Dose: 60 mg Documented by: Multivitamins/Minerals/Vitamin C (Multivitamin Tab) 1 tab PO DAILY [facility] Last Admin: 04/20/21 08:30 Dose: 1 tab Documented by: Desvenlafaxine Er (100 Mg Tablet) 1 each PO DAILY [facility] Last Admin: 04/20/21 08:30 Dose: 1 each Documented by: Sodium Chloride (Sodium Chloride 0.9% 10 Ml Syringe) 10 ml FLUSH ASDIRECTED PRN PRN Reason: Keep Vein Open Last Admin: 04/17/21 18:21 Dose: 10 ml Documented by: Sodium Chloride (Sodium Chloride 0.9% 2.5 Ml Syringe) 2.5 ml FLUSH ASDIRECTED PRN PRN Reason: Keep Vein Open Last Admin: 04/17/21 18:21 Dose: 2.5 ml Documented by: Discontinued Medications Albuterol/Ipratropium (Albuterol/Ipratropium 3.0-0.5 Mg/3 Ml Neb Soln) 3 ml NEB ONETIME ONE Stop: 04/17/21 18:15 Last Admin: 04/17/21 18:22 Dose: 3 ml Documented by: Clonazepam (Clonazepam 0.5 Mg Tab) 0.25 - 0.5 mg PO TID PRN PRN Reason: Anxiety Last Admin: 04/18/21 00:59 Dose: 0.5 mg Documented by: Ceftriaxone Sodium/Dextrose 1 (gm/ Premix) 50 mls @ 100 mls/hr IV ONETIME ONE Stop: 04/17/21 19:09 Last Admin: 04/17/21 18:51 Dose: 100 mls/hr Documented by: Iopamidol (Iopamidol 755 Mg/Ml 500 Ml Multipack Bottle) 50 ml IVPUSH ONETIME STA Stop: 04/17/21 19:47 Last Admin: 04/17/21 19:47 Dose: 50 ml Documented by: Methylprednisolone Sodium Succinate (Methylprednisolone Sodium Succinate 125 Mg/2 Ml Sdv) 80 mg IVPUSH ONETIME ONE Stop: 04/17/21 18:16 Last Admin: 04/17/21 18:51 Dose: 80 mg Documented by: Mirtazapine (Mirtazapine 15 Mg Tab) 15 mg PO BEDTIME [facility] Last Admin: 04/18/21 00:59 Dose: 15 mg Documented by: Desvenlafaxine Er (100 Mg Tablet) 1 each PO DAILY [facility] Last Admin: 04/19/21 09:41 Dose: Not Given Documented by: Potassium Chloride (Potassium Chloride 20 Meq Tab.Er) 40 meq PO ONETIME ONE Stop: 04/20/21 12:53 Last Admin: 04/20/21 13:22 Dose: 40 meq Documented by: - Exam General: Alert, Oriented Lungs: Normal Respiratory Effort, Rhonchi Cardiovascular: Regular Rate, Regular Rhythm GI/Abdominal Exam: Soft, Non-Tender, No Distention Extremities: Non-Tender, No Pedal Edema Skin: Warm, Dry, Intact Neurological: No New Focal Deficit - Patient Data Lab Results Last 24 hrs: Laboratory Results - last 24 hr 04/20/21 04/20/21 Range/Units 05:50 05:50 WBC 4.86 (4.0-11.0) K/uL RBC 3.71 L (4.30-5.90) M/uL Hgb 10.7 L (12.0-16.0) g/dL Hct 33.3 L (36.0-46.0) % MCV 89.8 (80.0-98.0) fL MCH 28.8 (27.0-32.0) pg MCHC 32.1 (31.0-37.0) g/dL RDW Std Deviation 47.4 (28.0-62.0) fl RDW Coeff of Go 14 (11.0-15.0) % Plt Count 262 (150-400) K/uL MPV 9.40 (7.40-12.00) fL Neut % (Auto) 54.8 (48.0-80.0) % Lymph % (Auto) 26.5 (16.0-40.0) % O[place]Brien % (Auto) 15.6 H (0.0-15.0) % Eos % (Auto) 2.7 (0.0-7.0) % Baso % (Auto) 0.4 (0.0-1.5) % Neut # (Auto) 2.7 (1.4-5.7) K/uL Lymph # (Auto) 1.3 (0.6-2.4) K/uL [place] # (Auto) 0.8 (0.0-0.8) K/uL Eos # (Auto) 0.1 (0.0-0.7) K/uL Baso # (Auto) 0.0 (0.0-0.1) K/uL Nucleated RBC % 0.0 /100WBC Nucleated RBCs # 0 K/uL Sodium 138 (136-145) mmol/L Potassium 3.3 L (3.5-5.1) mmol/L Chloride 101 (98-107) mmol/L Carbon Dioxide 28.0 (21.0-32.0) mmol/L BUN 22 H (7.0-18.0) mg/dL Creatinine 1.3 H (0.6-1.0) mg/dL Est Cr Clr Drug Dosing 34.59 mL/min Estimated GFR (MDRD) 39.6 ml/min Glucose 101 (74-106) mg/dL Calcium 8.8 (8.5-10.1) mg/dL Result Diagrams: 04/20/21 05:50 04/20/21 05:50 Sepsis Event Note - Evaluation Sepsis Screening Result: No Definite Risk - Focused Exam Vital Signs: Vital Signs Temp Pulse Resp BP Pulse Ox 04/21/21 05:00 36.4 C 61 18 117/56 L 91 L 04/21/21 01:01 36.1 C 56 L 18 136/63 92 L 04/20/21 20:48 36.4 C 61 20 120/81 92 L - Problem List & Annotations (1) RSV (respiratory syncytial virus infection) SNOMED Code(s): 63788480 Code(s): B97.4 - RESPIRATORY SYNCYTIAL VIRUS CAUSING DISEASES CLASSD ELSWHR Status: Acute Current Visit: Yes (2) Acute bronchiolitis SNOMED Code(s): 1711703 Code(s): J21.9 - ACUTE BRONCHIOLITIS, UNSPECIFIED Status: Acute Current Visit: Yes - Problem List Review Problem List Initiated/Reviewed/Updated: Yes - My Orders Last 24 Hours: My Active Orders 04/21/21 05:25 BASIC METABOLIC PANEL,BMP [CHEM] AM CBC WITH AUTO DIFF [HEME] AM - Plan Plan:: 80 yo female admitted for RSV pneumonia with hypoxia. Pneumonia: continue Rocephin and azithromycin for possible bacterial infection Hypoxia: on 2 L NC dispo: likely home tomorrow
[2021-04-21] MEDS: busPIRone 5 MG Tab PO SCH ×2 (09:48→21:32)
[2021-04-21] MEDS: lamoTRIgine 100 MG Tab PO SCH (09:48)
[2021-04-21] MEDS: Hydrochlorothiazide 12.5 MG Cap PO SCH (09:49)
[2021-04-21] MEDS: Multivitamin Tab PO SCH (09:49)
[2021-04-21] MEDS: Famotidine 20 MG Tab PO SCH (09:49)
[2021-04-21] MEDS: cefTRIAXone 1 GM in Premix Bag 1 BAG IV SCH (17:56)
[2021-04-21] MEDS: Mirtazapine 15 MG Tab PO SCH (21:33)
[2021-04-22] MEDS: Heparin Sodium 5,000 Units/ML Vial SUBCUT SCH ×2 (00:34→12:38)
[2021-04-22] MEDS: Albuterol/Ipratropium 3.0-0.5 MG/3 ML Neb Soln NEB SCH ×4 (00:34→17:29)
[2021-04-22] MEDS: Azithromycin 500 MG in Sodium Chloride 0.9% 250 ML IV SCH (00:35)
[2021-04-22] MEDS: Acetaminophen 325 MG Tab PO PRN (02:08)
[2021-04-22] MEDS: Levothyroxine 100 MCG Tab PO SCH (06:45)
[2021-04-22] MEDS: Famotidine 20 MG Tab PO SCH (08:43)
[2021-04-22] MEDS: lamoTRIgine 100 MG Tab PO SCH (08:44)
[2021-04-22] MEDS: Multivitamin Tab PO SCH (08:44)
[2021-04-22] MEDS: Hydrochlorothiazide 12.5 MG Cap PO SCH (08:44)
[2021-04-22] MEDS: busPIRone 5 MG Tab PO SCH ×2 (08:44→21:09)
--- NOTE | 2021-04-22 12:33 | PCM.PN ---
- General Info Date of Service: 04/22/21 - Review of Systems Systems Review Comment:: feeling better, thinks she will be strong enough to go home tomorrow, has some anxiety about going home today. - Patient Data Vitals - Most Recent: Last Vital Signs Temp 36.4 C 04/22/21 08:41 Pulse 64 04/22/21 08:41 Resp 18 04/22/21 08:41 BP 150/61 H 04/22/21 08:43 Pulse Ox 91 L 04/22/21 08:41 Weight - Most Recent: 74.344 kg I&O - Last 24 Hours: Intake & Output 04/21/21 04/22/21 04/22/21 22:59 06:59 14:59 Intake Total 350 900 Output Total 400 Balance 350 500 Med Orders - Current: Current Medications Acetaminophen (Acetaminophen 325 Mg Tab) 325 mg PO Q4H PRN PRN Reason: Pain Last Admin: 04/22/21 02:08 Dose: 325 mg Documented by: Albuterol/Ipratropium (Albuterol/Ipratropium 3.0-0.5 Mg/3 Ml Neb Soln) 3 ml NEB Q6HRRT [facility] Last Admin: 04/22/21 06:45 Dose: 3 ml Documented by: Buspirone HCl (Buspirone 5 Mg Tab) 15 mg PO BID [facility] Last Admin: 04/22/21 08:44 Dose: 15 mg Documented by: Clonazepam (Clonazepam 0.5 Mg Tab) 0.5 mg PO TID PRN PRN Reason: Anxiety Last Admin: 04/20/21 08:30 Dose: 0.5 mg Documented by: Enalapril Maleate (Enalapril 10 Mg Tab) 10 mg PO DAILY [facility] Last Admin: 04/22/21 08:43 Dose: 10 mg Documented by: Famotidine (Famotidine 20 Mg Tab) 20 mg PO DAILY [facility] Last Admin: 04/22/21 08:43 Dose: 20 mg Documented by: Guaifenesin/Dextromethorphan (Guaifenesin/Dextromethorphan 100-10 Mg/5 Ml Soln 10 Ml Cup) 10 ml PO Q6H PRN PRN Reason: Cough Last Admin: 04/21/21 21:45 Dose: 10 ml Documented by: Heparin Sodium (Porcine) (Heparin Sodium 5,000 Units/Ml Vial) 5,000 units SUBCUT Q12H [facility] Last Admin: 04/22/21 00:34 Dose: 5,000 units Documented by: Hydrochlorothiazide (Hydrochlorothiazide 12.5 Mg Cap) 12.5 mg PO DAILY [facility] Last Admin: 04/22/21 08:44 Dose: 12.5 mg Documented by: Ceftriaxone Sodium/Dextrose 1 (gm/ Premix) 50 mls @ 100 mls/hr IV Q24H [facility] Last Admin: 04/21/21 17:56 Dose: 100 mls/hr Documented by: Azithromycin 500 mg/ Sodium (Chloride) 250 mls @ 250 mls/hr IV Q24H [facility] Last Admin: 04/22/21 00:35 Dose: 250 mls/hr Documented by: Lamotrigine (Lamotrigine 100 Mg Tab) 200 mg PO DAILY [facility] Last Admin: 04/22/21 08:44 Dose: 200 mg Documented by: Levothyroxine Sodium (Levothyroxine 100 Mcg Tab) 100 mcg PO ACBRK [facility] Last Admin: 04/22/21 06:45 Dose: 100 mcg Documented by: Mirtazapine (Mirtazapine 15 Mg Tab) 60 mg PO BEDTIME [facility] Last Admin: 04/21/21 21:33 Dose: 60 mg Documented by: Multivitamins/Minerals/Vitamin C (Multivitamin Tab) 1 tab PO DAILY [facility] Last Admin: 04/22/21 08:44 Dose: 1 tab Documented by: Desvenlafaxine Er (100 Mg Tablet) 1 each PO DAILY [facility] Last Admin: 04/22/21 08:46 Dose: 1 each Documented by: Sodium Chloride (Sodium Chloride 0.9% 10 Ml Syringe) 10 ml FLUSH ASDIRECTED PRN PRN Reason: Keep Vein Open Last Admin: 04/17/21 18:21 Dose: 10 ml Documented by: Sodium Chloride (Sodium Chloride 0.9% 2.5 Ml Syringe) 2.5 ml FLUSH ASDIRECTED PRN PRN Reason: Keep Vein Open Last Admin: 04/17/21 18:21 Dose: 2.5 ml Documented by: Discontinued Medications Albuterol/Ipratropium (Albuterol/Ipratropium 3.0-0.5 Mg/3 Ml Neb Soln) 3 ml NEB ONETIME ONE Stop: 04/17/21 18:15 Last Admin: 04/17/21 18:22 Dose: 3 ml Documented by: Clonazepam (Clonazepam 0.5 Mg Tab) 0.25 - 0.5 mg PO TID PRN PRN Reason: Anxiety Last Admin: 04/18/21 00:59 Dose: 0.5 mg Documented by: Ceftriaxone Sodium/Dextrose 1 (gm/ Premix) 50 mls @ 100 mls/hr IV ONETIME ONE Stop: 04/17/21 19:09 Last Admin: 04/17/21 18:51 Dose: 100 mls/hr Documented by: Iopamidol (Iopamidol 755 Mg/Ml 500 Ml Multipack Bottle) 50 ml IVPUSH ONETIME STA Stop: 04/17/21 19:47 Last Admin: 04/17/21 19:47 Dose: 50 ml Documented by: Methylprednisolone Sodium Succinate (Methylprednisolone Sodium Succinate 125 Mg/2 Ml Sdv) 80 mg IVPUSH ONETIME ONE Stop: 04/17/21 18:16 Last Admin: 04/17/21 18:51 Dose: 80 mg Documented by: Mirtazapine (Mirtazapine 15 Mg Tab) 15 mg PO BEDTIME FERCHO Last Admin: 04/18/21 00:59 Dose: 15 mg Documented by: Desvenlafaxine Er (100 Mg Tablet) 1 each PO DAILY [facility] Last Admin: 04/19/21 09:41 Dose: Not Given Documented by: Potassium Chloride (Potassium Chloride 20 Meq Tab.Er) 40 meq PO ONETIME ONE Stop: 04/20/21 12:53 Last Admin: 04/20/21 13:22 Dose: 40 meq Documented by: - Exam General: Alert, Oriented Neck: Supple Lungs: Clear to Auscultation, Normal Respiratory Effort Cardiovascular: Regular Rate, Regular Rhythm GI/Abdominal Exam: Soft, Non-Tender, No Distention Extremities: Non-Tender, No Pedal Edema Skin: Warm, Dry, Intact Neurological: No New Focal Deficit - Patient Data Result Diagrams: 04/21/21 05:25 04/21/21 05:25 Sepsis Event Note - Evaluation Sepsis Screening Result: No Definite Risk - Focused Exam Vital Signs: Vital Signs Temp Pulse Resp BP BP Pulse Ox 04/22/21 08:43 150/61 H 04/22/21 08:41 36.4 C 64 18 150/61 H 91 L 04/22/21 05:00 36.3 C 58 L 19 124/58 L 93 L 04/22/21 00:51 36.5 C 58 L 19 118/54 L 90 L - Problem List & Annotations (1) RSV (respiratory syncytial virus infection) SNOMED Code(s): 37782245 Code(s): B97.4 - RESPIRATORY SYNCYTIAL VIRUS CAUSING DISEASES CLASSD [id number] Status: Acute Current Visit: Yes (2) Acute bronchiolitis SNOMED Code(s): 9078062 Code(s): J21.9 - ACUTE BRONCHIOLITIS, UNSPECIFIED Status: Acute Current Visit: Yes - Problem List Review Problem List Initiated/Reviewed/Updated: Yes - My Orders Last 24 Hours: My Active Orders 04/22/21 12:31 BASIC METABOLIC PANEL,BMP [CHEM] Routine CBC WITH AUTO DIFF [HEME] Routine - Plan Plan:: 80 yo female admitted for RSV pneumonia with hypoxia. Pneumonia: continue Rocephin and azithromycin for possible bacterial infection Hypoxia: on 2 L NC dispo: discharge home tomorrow
[2021-04-22] MEDS: ClonazePAM 0.5 MG Tab PO PRN ×2 (12:51→21:09)
[2021-04-22 13:13] LABS: CARBON DIOXIDE,CO2 27.2 mmol/L (21.0-32.0); POTASSIUM,K 4.2 mmol/L (3.5-5.1)
[2021-04-22] MEDS: cefTRIAXone 1 GM in Premix Bag 1 BAG IV SCH (17:30)
[2021-04-22] MEDS: guaiFENesin/Dextromethorphan 100-10 MG/5 ML Soln 10 ML Cup PO PRN (21:09)
[2021-04-22] MEDS: Mirtazapine 15 MG Tab PO SCH (21:09)
[2021-04-23] MEDS: Albuterol/Ipratropium 3.0-0.5 MG/3 ML Neb Soln NEB SCH ×3 (01:00→11:31)
[2021-04-23] MEDS: Heparin Sodium 5,000 Units/ML Vial SUBCUT SCH (01:01)
[2021-04-23] MEDS: Azithromycin 500 MG in Sodium Chloride 0.9% 250 ML IV SCH (01:01)
[2021-04-23] MEDS: Acetaminophen 325 MG Tab PO PRN (02:20)
[2021-04-23] MEDS: Levothyroxine 100 MCG Tab PO SCH (06:50)
[2021-04-23] MEDS: busPIRone 5 MG Tab PO SCH (09:27)
[2021-04-23] MEDS: lamoTRIgine 100 MG Tab PO SCH (09:28)
[2021-04-23] MEDS: Famotidine 20 MG Tab PO SCH (09:28)
[2021-04-23] MEDS: Hydrochlorothiazide 12.5 MG Cap PO SCH (09:28)
[2021-04-23] MEDS: Multivitamin Tab PO SCH (09:29)
--- NOTE | 2021-04-23 10:39 | PCM.DCSUM1 ---
Discharge Summary - Discharge Data Discharge Date: 04/23/21 Discharge Disposition: Home, Self-Care 01 Condition: Good - Referral to Home Health Primary Care Physician: Jasmeet Wade MD - Discharge Diagnosis/Problem(s) (1) RSV (respiratory syncytial virus infection) SNOMED Code(s): 34057508 ICD Code: B97.4 - RESPIRATORY SYNCYTIAL VIRUS CAUSING DISEASES CLASSD [id number] Status: Acute Current Visit: Yes (2) Acute bronchiolitis SNOMED Code(s): 6704584 ICD Code: J21.9 - ACUTE BRONCHIOLITIS, UNSPECIFIED Status: Acute Current Visit: Yes - Patient Summary/Data Hospital Course: 80 yo female with pmh of hypertension who presents with several day history of cough, shortness of breath and fatigue. Patient's granddaughter is also sick and has slept in same room. CT scans of chest is negative for PE but shows bilateral infiltrates. She was positive for RSV. She was treated emperically with Rocephin and Azithromycin for five days. Today she is feeling better and is ready for discharge. She did desat to 87% with exertion so home oxygen was arranged. She is to follow up with Dr. Wade. - Patient Instructions Diet: Regular Diet as Tolerated Activity: As Tolerated Notify Provider of: Fever, Increased Pain, Nausea and/or Vomiting - Discharge Plan Home Medications: Home Meds ClonazePAM [KlonoPIN] 0.5 mg PO TID PRN 12/09/13 [History] Enalapril [Vasotec] 10 mg PO DAILY 12/09/13 [History] Levothyroxine Sodium [Levoxyl] 100 mcg PO DAILY 12/09/13 [History] hydroCHLOROthiazide [Microzide] 12.5 mg PO DAILY 12/09/13 [History] Cholecalciferol (Vitamin D3) [Vitamin D3] 1 tab PO DAILY 08/30/15 [History] Famotidine [Pepcid AC] 20 mg PO DAILY 08/30/15 [History] Mirtazapine 60 mg PO BEDTIME 08/30/15 [History] Multivitamin [Multivitamins] 1 tab PO DAILY 08/30/15 [History] Desvenlafaxine [Desvenlafaxine ER] 100 mg PO DAILY 04/18/21 [History] busPIRone [Buspar] 15 mg PO BID 04/18/21 [History] lamoTRIgine 200 mg PO DAILY 04/18/21 [History] Oxygen Therapy Mode: Nasal Cannula Oxygen Flow Rate (L/min): 2 (with exertion) Patient Handouts: Viral Respiratory Infection, [id number], Home Oxygen Use, Adult, Respiratory Syncytial Virus Infection, Adult Referrals: Jasmeet Wade MD [Primary Care Provider] - 04/26/21 3:00 pm - Discharge Summary/Plan Comment DC Time >30 min.: No Total # of Minutes for Discharge Time: 15 - Patient Data Vitals - Most Recent: Last Vital Signs Temp 36.6 C 04/23/21 06:51 Pulse 60 04/23/21 06:51 Resp 18 04/23/21 06:51 BP 134/67 04/23/21 09:27 Pulse Ox 92 L 04/23/21 09:39 Weight - Most Recent: 74.344 kg I&O - Last 24 hours: Intake & Output 04/22/21 04/23/21 04/23/21 22:59 06:59 14:59 Intake Total 1300 250 Output Total 900 Balance 400 250 Lab Results - Last 24 hrs: Laboratory Results - last 24 hr 04/22/21 04/22/21 Range/Units 12:45 12:45 WBC 5.87 (4.0-11.0) K/uL RBC 3.75 L (4.30-5.90) M/uL Hgb 10.9 L (12.0-16.0) g/dL Hct 33.6 L (36.0-46.0) % MCV 89.6 (80.0-98.0) fL MCH 29.1 (27.0-32.0) pg MCHC 32.4 (31.0-37.0) g/dL RDW Std Deviation 48.1 (28.0-62.0) fl RDW Coeff of Go 15 (11.0-15.0) % Plt Count 277 (150-400) K/uL MPV 8.70 (7.40-12.00) fL Add Manual Diff YES Neutrophils % (Manual) 55 (48.0-80.0) % Band Neutrophils % 12 % Lymphocytes % (Manual) 23 (16.0-40.0) % Monocytes % (Manual) 5 (0.0-15.0) % Eosinophils % (Manual) 4 (0.0-7.0) % Basophils % (Manual) 1 (0.0-1.5) % Nucleated RBC % 0.0 /100WBC Absolute Seg Neuts 3.2 (1.4-5.7) Band Neutrophils # 0.7 Lymphocytes # (Manual) 1.4 (0.6-2.4) Monocytes # (Manual) 0.3 (0.0-0.8) Eosinophils # (Manual) 0.2 (0.0-0.7) Basophils # (Manual) 0.1 (0.0-0.1) Nucleated RBCs # 0 K/uL Sodium 137 (136-145) mmol/L Potassium 4.2 (3.5-5.1) mmol/L Chloride 102 (98-107) mmol/L Carbon Dioxide 27.2 (21.0-32.0) mmol/L BUN 19 H (7.0-18.0) mg/dL Creatinine 1.5 H (0.6-1.0) mg/dL Est Cr Clr Drug Dosing 29.98 mL/min Estimated GFR (MDRD) 33.6 ml/min Glucose 113 H (74-106) mg/dL Calcium 8.9 (8.5-10.1) mg/dL Med Orders - Current: Current Medications Acetaminophen (Acetaminophen 325 Mg Tab) 325 mg PO Q4H PRN PRN Reason: Pain Last Admin: 04/23/21 02:20 Dose: 325 mg Documented by: Albuterol/Ipratropium (Albuterol/Ipratropium 3.0-0.5 Mg/3 Ml Neb Soln) 3 ml NEB Q6HRRT [facility] Last Admin: 04/23/21 06:55 Dose: 3 ml Documented by: Buspirone HCl (Buspirone 5 Mg Tab) 15 mg PO BID [facility] Last Admin: 04/23/21 09:27 Dose: 15 mg Documented by: Clonazepam (Clonazepam 0.5 Mg Tab) 0.5 mg PO TID PRN PRN Reason: Anxiety Last Admin: 04/22/21 21:09 Dose: 0.5 mg Documented by: Enalapril Maleate (Enalapril 10 Mg Tab) 10 mg PO DAILY [facility] Last Admin: 04/23/21 09:27 Dose: 10 mg Documented by: Famotidine (Famotidine 20 Mg Tab) 20 mg PO DAILY [facility] Last Admin: 04/23/21 09:28 Dose: 20 mg Documented by: Guaifenesin/Dextromethorphan (Guaifenesin/Dextromethorphan 100-10 Mg/5 Ml Soln 10 Ml Cup) 10 ml PO Q6H PRN PRN Reason: Cough Last Admin: 04/22/21 21:09 Dose: 10 ml Documented by: Heparin Sodium (Porcine) (Heparin Sodium 5,000 Units/Ml Vial) 5,000 units SUBCUT Q12H [facility] Last Admin: 04/23/21 01:01 Dose: 5,000 units Documented by: Hydrochlorothiazide (Hydrochlorothiazide 12.5 Mg Cap) 12.5 mg PO DAILY [facility] Last Admin: 04/23/21 09:28 Dose: 12.5 mg Documented by: Ceftriaxone Sodium/Dextrose 1 (gm/ Premix) 50 mls @ 100 mls/hr IV Q24H [facility] Last Admin: 04/22/21 17:30 Dose: 100 mls/hr Documented by: Azithromycin 500 mg/ Sodium (Chloride) 250 mls @ 250 mls/hr IV Q24H [facility] Last Admin: 04/23/21 01:01 Dose: 250 mls/hr Documented by: Lamotrigine (Lamotrigine 100 Mg Tab) 200 mg PO DAILY [facility] Last Admin: 04/23/21 09:28 Dose: 200 mg Documented by: Levothyroxine Sodium (Levothyroxine 100 Mcg Tab) 100 mcg PO ACBRK [facility] Last Admin: 04/23/21 06:50 Dose: 100 mcg Documented by: Mirtazapine (Mirtazapine 15 Mg Tab) 60 mg PO BEDTIME [facility] Last Admin: 04/22/21 21:09 Dose: 60 mg Documented by: Multivitamins/Minerals/Vitamin C (Multivitamin Tab) 1 tab PO DAILY [facility] Last Admin: 04/23/21 09:29 Dose: 1 tab Documented by: Desvenlafaxine Er (100 Mg Tablet) 1 each PO DAILY [facility] Last Admin: 04/23/21 09:29 Dose: 1 each Documented by: Sodium Chloride (Sodium Chloride 0.9% 10 Ml Syringe) 10 ml FLUSH ASDIRECTED PRN PRN Reason: Keep Vein Open Last Admin: 04/17/21 18:21 Dose: 10 ml Documented by: Sodium Chloride (Sodium Chloride 0.9% 2.5 Ml Syringe) 2.5 ml FLUSH ASDIRECTED PRN PRN Reason: Keep Vein Open Last Admin: 04/17/21 18:21 Dose: 2.5 ml Documented by: Discontinued Medications Albuterol/Ipratropium (Albuterol/Ipratropium 3.0-0.5 Mg/3 Ml Neb Soln) 3 ml NEB ONETIME ONE Stop: 04/17/21 18:15 Last Admin: 04/17/21 18:22 Dose: 3 ml Documented by: Clonazepam (Clonazepam 0.5 Mg Tab) 0.25 - 0.5 mg PO TID PRN PRN Reason: Anxiety Last Admin: 04/18/21 00:59 Dose: 0.5 mg Documented by: Ceftriaxone Sodium/Dextrose 1 (gm/ Premix) 50 mls @ 100 mls/hr IV ONETIME ONE Stop: 04/17/21 19:09 Last Admin: 04/17/21 18:51 Dose: 100 mls/hr Documented by: Iopamidol (Iopamidol 755 Mg/Ml 500 Ml Multipack Bottle) 50 ml IVPUSH ONETIME STA Stop: 04/17/21 19:47 Last Admin: 04/17/21 19:47 Dose: 50 ml Documented by: Methylprednisolone Sodium Succinate (Methylprednisolone Sodium Succinate 125 Mg/2 Ml Sdv) 80 mg IVPUSH ONETIME ONE Stop: 04/17/21 18:16 Last Admin: 04/17/21 18:51 Dose: 80 mg Documented by: Mirtazapine (Mirtazapine 15 Mg Tab) 15 mg PO BEDTIME [facility] Last Admin: 04/18/21 00:59 Dose: 15 mg Documented by: Desvenlafaxine Er (100 Mg Tablet) 1 each PO DAILY [facility] Last Admin: 04/19/21 09:41 Dose: Not Given Documented by: Potassium Chloride (Potassium Chloride 20 Meq Tab.Er) 40 meq PO ONETIME ONE Stop: 04/20/21 12:53 Last Admin: 04/20/21 13:22 Dose: 40 meq Documented by:
[2021-04-23 13:32] VITALS: BP 146/67; PULSE 70
== END 2021-04-23 13:45 | disposition home or self-care (01) | DRG 193 ==
LOC: MW.ED 14:24 → MW.MS 21:46 → OBSVTOIN 04-18 13:13 → MW.MS 04-18 15:30
PROVIDERS: ADMIT Internal Medicine; ATTEND Internal Medicine
DX: J12.1 Respiratory syncytial virus pneumonia (principal); R09.02 Hypoxemia; J96.01 Acute respiratory failure with hypoxia; J21.0 Acute bronchiolitis due to respiratory syncytial virus; E78.00 Pure hypercholesterolemia, unspecified; F41.0 Panic disorder [episodic paroxysmal anxiety]; F41.9 Anxiety disorder, unspecified; F32.A Depression, unspecified; M19.90 Unspecified osteoarthritis, unspecified site; F17.210 Nicotine dependence, cigarettes, uncomplicated; Z20.822 Contact with and (suspected) exposure to COVID-19; I10 Essential (primary) hypertension; M79.7 Fibromyalgia; E03.9 Hypothyroidism, unspecified; Z79.890 Hormone replacement therapy; Z79.899 Other long term (current) drug therapy; Z90.49 Acquired absence of other specified parts of digestive tract; Z98.84 Bariatric surgery status; Z90.710 Acquired absence of both cervix and uterus; Z87.442 Personal history of urinary calculi
CPT/HCPCS: 36415 ×2; 71045; 71275; 80048; 80053; 83880; 84484; 85025 ×2; 85610; 87804 ×2; 87807; 93005; 94640 ×2; 96365; 96375; 99285; A9270 ×6; J0456; J0696; J2930; J7050; Q9967; U0002; 96367; G0378; J1644; J7620-GY

== ENCOUNTER 2021-06-05 15:02 | Emergency (ER) | payer MEDICARE, OTHER ==
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
[2021-06-05 16:46] VITALS: BP 90/65; PULSE 62
[2021-06-05 17:17] LABS: CARBON DIOXIDE,CO2 27.1 mmol/L (21.0-32.0)
== END 2021-06-05 16:46 | disposition home or self-care (01) ==
LOC: MW.ED 15:02
DX: I10 Essential (primary) hypertension (principal); E03.9 Hypothyroidism, unspecified; Z79.899 Other long term (current) drug therapy
CPT/HCPCS: 36415; 80053; 81003; 85025; 93005; 99283-25

== ENCOUNTER 2024-11-05 09:40 | Emergency (ER) | payer MEDICARE, OTHER ==
[2024-11-05 10:21] LABS: BASOPHILS ABSOLUTE AUTO 0.03 K/uL (0.00-0.20); BASOPHILS PERCENT AUTO 0.6 % (0.0-1.0); EOSINOPHILS ABSOLUTE AUTO 0.08 K/uL (0.00-0.45); EOSINOPHILS PERCENT AUTO 1.7 % (0.0-6.0); HEMOGLOBIN 11.6 g/dL (12.0-16.0); IMMATURE GRAN ABSOLUTE AUTO 0.01 K/uL (0.00-0.05); IMMATURE GRAN PERCENT AUTO 0.2 % (0.0-0.4); LYMPHOCYTES ABSOLUTE AUTO 1.25 K/uL (1.00-4.80); LYMPHOCYTES PERCENT AUTO 26.8 % (24.0-44.0); MEAN CORPUSCULAR HEMOGLOBIN 28.7 pg (28.0-32.0); MEAN CORPUSCULAR HGB CONC 31.4 g/dL (32.0-36.0); MEAN CORPUSCULAR VOLUME 91.6 fL (83.0-99.0); MONOCYTES ABSOLUTE AUTO 0.51 K/uL (0.00-0.80); MONOCYTES PERCENT AUTO 10.9 % (0.0-8.0); NEUTROPHILS ABSOLUTE AUTO 2.79 K/uL (1.80-7.70); NEUTROPHILS PERCENT AUTO 59.8 % (41.0-71.0); PLATELET COUNT,PLT 219 K/uL (150-400); RED BLOOD CELL COUNT 4.04 M/uL (4.10-5.30); WHITE BLOOD CELL COUNT,WBC 4.67 K/uL (3.9-11.3)
[2024-11-05 10:34] LABS: A/G RATIO 1.3 (0.9-1.6); ALBUMIN 3.7 g/dL (3.4-5.0); BILIRUBIN TOTAL 0.4 mg/dL (0.2-1.0); CALCIUM 9.2 mg/dL (8.5-10.1); CARBON DIOXIDE,CO2 24.1 mmol/L (21.0-32.0); CREATININE 1.6 mg/dL (0.6-1.0); EST CRCL DRUG DOSING (CG) 25.38 mL/min; POTASSIUM,K 4.6 mmol/L (3.5-5.1); PROTEIN TOTAL,TP 6.6 g/dL (6.4-8.2)
[2024-11-05] MEDS: Lactated Ringers 1,000 ML IV SCH (10:46)
[2024-11-05 10:55] VITALS: BP 136/56; PULSE 46
[2024-11-05 11:01] LABS: MAGNESIUM 1.8 mg/dL (1.8-2.4); TSH ULTRASENSITIVE 2.32 uIU/mL (0.36-3.74)
[2024-11-05 13:27] LABS: APPEARANCE,URINE CLEAR; BILIRUBIN,URINE NEGATIVE (NEGATIVE); COLOR,URINE YELLOW; GLUCOSE,URINE NEGATIVE (NEGATIVE); KETONES,URINE NEGATIVE (NEGATIVE); LEUKOCYTE ESTERASE,URINE TRACE (NEGATIVE); NITRITE,URINE NEGATIVE (NEGATIVE); OCCULT BLOOD,URINE NEGATIVE (NEGATIVE); PROTEIN,URINE NEGATIVE (NEGATIVE); UROBILINOGEN,URINE 0.2 EU/dL (<2.0)
[2024-11-05 13:38] LABS: BACTERIA,URINE FEW (NEGATIVE); EPITHELIAL CELLS,URINE OCCASIONAL (NONE-FEW); RBC,URINE 0-2 (0-2/HPF)
== END 2024-11-05 14:46 | disposition home or self-care (01) ==
LOC: MW.ED 09:40
DX: R42 Dizziness and giddiness (principal); E86.0 Dehydration; E03.9 Hypothyroidism, unspecified; Z75.3 Unavailability and inaccessibility of health-care facilities; Z79.890 Hormone replacement therapy; Z79.899 Other long term (current) drug therapy; Z90.49 Acquired absence of other specified parts of digestive tract; Z90.710 Acquired absence of both cervix and uterus
CPT/HCPCS: 36415; 71046; 71046-26; 80053; 81001; 83735; 84443; 84484; 85025; 87086; 93005; 93010; 96360; 99284; 99285-25; J7120